=== PATIENT | female | born 1970 | race Two or more races ===

== ENCOUNTER 2020-09-16 10:48 | Outpatient (RCR) | payer BC, SELFPAY ==
[2020-09-16 10:51] VITALS: BP 138/69; PULSE 72
== END 2021-08-01 13:23 | disposition home or self-care (01) ==
LOC: HO.PT 10:48
PROVIDERS: PCP Internal Medicine; Visit Provider Internal Medicine
DX: R42 Dizziness and giddiness (principal)
CPT/HCPCS: 97110; 97161

== ENCOUNTER 2020-09-26 16:22 | Outpatient (REF) | payer BC, SELFPAY ==
--- NOTE | 2020-09-26 | MM_ITS ---
EXAMINATION: MM SCREENING DIGITAL BREAST TOMOSYNTHESIS, BILATERAL CLINICAL INFORMATION: Screening. Asymptomatic. The lifetime risk of breast cancer based on the Tyrer-Cuzick Model is 10%. COMPARISON: Mammography: 09/21/2019, 09/19/2018 TECHNIQUE: Digital breast tomosynthesis is performed in both the craniocaudal and mediolateral oblique views along with computer-aided detection (CAD). Synthesized 2D images are generated from the tomosynthesis. FINDINGS: There are scattered areas of fibroglandular density (ACR BI-RADS breast composition Category b). There are no significant masses, abnormal calcifications, or other abnormalities. Parenchymal pattern is similar to prior studies. No significant changes. MM/MM tomosynthesis screening BI IMPRESSION: No mammographic evidence of malignancy. ASSESSMENT: BI-RADS 1: Negative RECOMMENDATION: Routine annual mammography screening. This patient's information was entered into a reminder system with a target due date for their next mammogram.
== END 2020-09-26 16:23 | disposition home or self-care (01) ==
LOC: HO.MAMMO 16:22
PROVIDERS: Visit Provider Internal Medicine
DX: Z12.31 Encounter for screening mammogram for malignant neoplasm of breast (principal)
CPT/HCPCS: 77063; 77067

== ENCOUNTER 2021-08-17 07:52 | Outpatient (REF) | payer BC, SELFPAY ==
--- NOTE | 2021-08-17 07:57 | EMG_ITS ---
Right median and ulnar motor and sensory studies were performed. Right radial sensory study was performed and paraspinal muscles were tested. IMPRESSION: 1. Moderately severe right median neuropathy across carpal tunnel. 2. Fdry-tv-[id number] right ulnar neuropathy across cubital tunnel. MD ЕЛЕНА Cullen/SHANIKA / [id number]
== END 2021-08-17 07:53 | disposition home or self-care (01) ==
LOC: HO.NEURO 07:52
PROVIDERS: PCP Internal Medicine; Visit Provider Internal Medicine
DX: M79.642 Pain in left hand (principal); M79.641 Pain in right hand
CPT/HCPCS: 95885; 95909

== ENCOUNTER → 2021-09-06 12:46 | Outpatient (BNVA) | payer BC, SELFPAY | PROVIDERS: PCP Internal Medicine; Visit Provider Orthopaedic Surgery | DX: G56.01 Carpal tunnel syndrome, right upper limb (principal); M25.641 Stiffness of right hand, not elsewhere classified | CPT/HCPCS: 20526; J1100 ==

== ENCOUNTER 2021-10-19 16:11 | Outpatient (REF) | payer BC, SELFPAY ==
--- NOTE | ~2021-10-19 | MM_ITS ---
EXAMINATION: MM SCREENING DIGITAL BREAST TOMOSYNTHESIS, BILATERAL CLINICAL INFORMATION: Screening. Asymptomatic. The lifetime risk of breast cancer based on the Tyrer-Cuzick Model is 10%. COMPARISON: Mammography: 09/26/2020, 09/21/2019, 09/19/2018 TECHNIQUE: Digital breast tomosynthesis is performed in both the craniocaudal and mediolateral oblique views along with computer-aided detection (CAD). Synthesized 2D images are generated from the tomosynthesis. FINDINGS: There are scattered areas of fibroglandular density (ACR BI-RADS breast composition Category b). There are no significant masses, abnormal calcifications, or other abnormalities. MM/MM tomosynthesis screening BI IMPRESSION: No mammographic evidence of malignancy. ASSESSMENT: BI-RADS 1: Negative RECOMMENDATION: Routine annual mammography screening. This patient's information was entered into a reminder system with a target due date for their next mammogram.
== END 2021-10-19 16:12 | disposition home or self-care (01) ==
LOC: HO.MAMMO 16:11
PROVIDERS: Visit Provider Internal Medicine
DX: Z12.31 Encounter for screening mammogram for malignant neoplasm of breast (principal)
CPT/HCPCS: 77063; 77067

== ENCOUNTER → 2022-03-15 14:49 | Outpatient (BNVA) | payer BC, SELFPAY | PROVIDERS: Visit Provider Advanced Practice Midwife | DX: R10.9 Unspecified abdominal pain (principal); I10 Essential (primary) hypertension; F41.8 Other specified anxiety disorders; Z30.431 Encounter for routine checking of intrauterine contraceptive device; Z78.0 Asymptomatic menopausal state; Z79.899 Other long term (current) drug therapy | CPT/HCPCS: 81003 ==

== ENCOUNTER 2022-07-30 08:02 | Day surgery (SDC) | payer BC, SELFPAY ==
[2022-07-24 13:20] VITALS: BMI 27.8
[2022-07-30 08:36] VITALS: BP 116/81; PULSE 64; RESP 15; TEMP 36.5; O2SAT 98
--- NOTE | 2022-07-30 09:00 | P.CONAN_ITS ---
HPI - Anesthesia Eval Consult details Narrative: 52 yo female patient for colonoscopy PMF Active Problems Active Problems: All Active Problems (Updated 03/15/22 @ 16:21 by Tara Mckenzie CNM) Carpal tunnel syndrome of right wrist (Acute) Stiffness of right hand joint (Acute) IUD check up (Acute) Left-sided abdominal pain of unknown etiology (Acute) Past Medical History Medical History Anxiety Depression High blood pressure Family History Family history of problems with anesthesia: No Surgical History Surgical History (Updated 07/30/22 @ 09:05 by Madelaine Garcia RN) History of section History of tooth extraction Hx of breast biopsy History of Problems with Anesthesia: No (Some dizziness after stereotactic breast biopsy and after dental extraction but these were both local. Very limited information available for breast biopsy 06/05/17 but documented as stable post op. 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 Meds Allergies Allergy/AdvReac Type Severity Reaction Status Date / Time No Known Allergies Allergy Verified 03/15/22 15:08 Active Medications: Current Medications Lactated Ringer's (Lr) 1,000 mls @ 50 mls/hr IVCONT .Q20H GRIS Sodium Biphosphate/Sodium Phosphate (Sodium Phosphate,[place]-Dibasic 133 Ml Enema) 133 ml KS ONCE PRN PRN Reason: Poor Colonoscopy Prep Results Home Medications Medication Instructions Recorded Confirmed Last Taken Type alprazolam 0.25 mg tablet 0.5 mg PO BEDTIME PRN Anxiety 09/06/21 07/24/22 Unknown History quetiapine 25 mg tablet (Seroquel) 100 mg PO DAILY 09/06/21 07/24/22 Unknown History sertraline 25 mg tablet (Zoloft) 50 mg PO DAILY 09/06/21 07/24/22 Unknown History zolpidem 10 mg tablet 10 mg PO BEDTIME PRN Insomnia 09/06/21 07/24/22 Unknown History levonorgestrel 20 mcg/24 hours (7 intrauterine 03/15/22 03/15/22 Unknown History yrs) 52 mg intrauterine device (Mirena) lisinopril 10 mg tablet 10 mg PO QAM 07/24/22 07/24/22 Unknown History Exam Exam Date and Time: July 30, 2022 0900 Height,Weight and Vital Signs: Height 5 ft 2 in Weight 68.946 kg Last Vital Signs Temp 97.7 F 07/30/22 08:36 Pulse 64 07/30/22 08:36 Resp 15 07/30/22 08:36 BP 116/81 07/30/22 08:36 Pulse Ox 98 07/30/22 08:36 O2 Del Method 07/30/22 08:36 Airway Mallampati Class: II TM Dist: >3cm Neck ROM: Full Loose/Missing/Broken Teeth: Yes (Dental extraction ) Heart: RRR Lungs: CTAB Assessment and Plan Assessment Anesthesia Assessment: Anesthesia Plan Discussed and Chart Reviewed Final Anesthetic Review Family History of Problems with Anesthesia: No History of Problems with Anesthesia: No (Some dizziness after stereotactic breast biopsy and after dental extraction but these were both local. Very limited information available for breast biopsy 06/05/17 but documented as stable post op. Of note, patient does have a h/o vertigo ) NPO: Yes ASA Class: II Final Preanesthetic Review: No Changes in Pt Med Stat, Meds/Allgs Chart Reviewed, Consent Obtained/Reviewed and Anes Risks/Benef Reviewed Patient Risk: Low Procedure Risk: Low Assessment/Block/Sedation in SS: Assess/Block/Sedation-SS Anesthetic Plan Anesthetic Plan: MAC: Disposition: Standard PACU
[2022-07-30] MEDS: Lactated Ringers 1,000 ML 50 ML IVCONT (09:28)
[2022-07-30 10:42] VITALS: BP 105/64; PULSE 77; RESP 16; TEMP 37.1; O2SAT 97
--- NOTE | 2022-07-30 10:47 | P.BOP_ITS ---
Brief Operative Note Date of Service: 07/30/22 Pre-op diagnosis: Screening Post-op diagnosis: other (Colon polyps) Procedure: Colonoscopy to the cecum and TI with hot snare polypectomy in the transverse colon and at 60cm, cold snare polypectomy in the proximal ascending colon, and biopsy/removal of polyp at 90cm Surgeon: David Austin Anesthesia: MAC Was an Congressional Assistant used for this Procedure?: No Estimated blood loss (mL): 2.0 Pathology: other (A. Ascending colon polyp B. Transverse colon polyp C. Polyp at 90cm D. Polyp at 60cm) Condition: stable Disposition: PACU
[2022-07-30 10:57] VITALS: BP 120/68; PULSE 69; RESP 18; TEMP 37.1; O2SAT 97
--- NOTE | 2022-07-30 22:45 | OP_ITS ---
SURGEON: David Austin MD INDICATIONS: The patient presents for evaluation of colorectal cancer screening. Full consent was obtained from her for this, including risks of bleeding and perforation. PREOPERATIVE DIAGNOSIS: Colorectal cancer screening. POSTOPERATIVE DIAGNOSIS: Colorectal cancer screening, colon polyps, diverticulosis, and internal hemorrhoids. PROCEDURE PERFORMED: Colonoscopy to the cecum and terminal ileum with biopsy and removal of polyps, cold snare polypectomy, and hot snare polypectomy x 2 in the transverse colon and at 60 cm. ESTIMATED BLOOD LOSS: COMPLICATIONS: ANESTHESIA: ASSISTANTS: SPECIMENS: PREOPERATIVE MEDICATION USED: Monitored anesthesia care. DESCRIPTION OF PROCEDURE: The patient was placed in the left lateral decubitus position. The digital rectal exam revealed no abnormalities. The Olympus video pediatric colonoscope was entered into the rectum and advanced easily to the cecum. Once in the cecum, I did identify normal-appearing cecal pouch with appendiceal orifice and a normal-appearing ileocecal valve. The terminal ileum was cannulated and appeared normal. The scope was withdrawn back in the colon. The entire cecum and ileocecal valve appeared normal. The scope was then slowly withdrawn assessing all mucosal surfaces carefully. Preparation was excellent. In the proximal ascending colon was an approximately 5 mm polyp, which was removed by cold snare polypectomy and recovered by suction. The polypectomy site appeared clean, without any sign of residual polyp, nor any significant bleeding. In the transverse colon was an approximately 1.2 cm polyp on a stalk, which was removed by hot snare polypectomy and then recovered with a retrieval net and brought out of the patient. The colonoscope was then advanced back to the polypectomy site, which appeared clean, without any sign of residual polyp, nor bleeding. At 90 cm was an approximately 3 mm polyp, which was removed by cold biopsy forceps completely. At 60 cm was an approximately 8 mm polyp on a stalk, which was removed by hot snare polypectomy and then recovered by suction. The polypectomy site appeared clean, without any sign of residual polyp, nor bleeding. I did not visualize any other polyps, colitis, nor angiodysplasia. There was a mild amount of sigmoid diverticulosis. In the rectum, scope was retroflexed visualizing internal hemorrhoids, but no other pathology. The rectal mucosa appeared normal. The scope was straightened and withdrawn from the patient. She tolerated the procedure well and was returned to the recovery area in stable condition. IMPRESSION: 1. Colon polyps. 2. Diverticulosis. 3. Internal hemorrhoids. PLAN: The results of the pathology will be checked. Given the number of polyps, I would recommend a repeat colonoscopy in 3 years for further surveillance. She was advised not to use any aspirin and NSAIDs for 1 week. MD CATIE Godinez/SHANIKA / [id number] MTDD
== END 2022-07-30 11:43 | disposition home or self-care (01) ==
PROVIDERS: PCP Internal Medicine; Visit Provider Internal Medicine
PROC: 0DJD8ZZ Inspection of Lower Intestinal Tract, Via Natural or Artificial Opening Endoscopic (ICD-10-PCS; CPT 45378; principal; 2022-07-30 09:30)
DX: Z12.11 Encounter for screening for malignant neoplasm of colon (principal); D12.2 Benign neoplasm of ascending colon; D12.3 Benign neoplasm of transverse colon; D12.4 Benign neoplasm of descending colon; K57.30 Diverticulosis of large intestine without perforation or abscess without bleeding; K64.8 Other hemorrhoids; I10 Essential (primary) hypertension; F41.8 Other specified anxiety disorders; Z79.899 Other long term (current) drug therapy
CPT/HCPCS: 45385; 45380; 88305

== ENCOUNTER 2022-10-30 15:45 | Outpatient (REF) | payer BC, SELFPAY ==
--- NOTE | ~2022-10-30 | MM_ITS ---
EXAMINATION: MM SCREENING DIGITAL BREAST TOMOSYNTHESIS, BILATERAL CLINICAL INFORMATION: Screening. Asymptomatic. The lifetime risk of breast cancer based on the Tyrer-Cuzick Model is 10%. COMPARISON: Mammography: 10/19/2021, 1026, 09/21/2019 TECHNIQUE: Digital breast tomosynthesis is performed in both the craniocaudal and mediolateral oblique views along with computer-aided detection (CAD). Synthesized 2D images are generated from the tomosynthesis. FINDINGS: There are scattered areas of fibroglandular density (ACR BI-RADS breast composition Category b). There are no significant masses, abnormal calcifications, or other abnormalities. Parenchymal pattern is similar to prior studies. There is no developing density or architectural abnormality. There is a biopsy clip marker anterior 2:30 left breast. The axilla and skin contours are unremarkable. No significant changes. MM/MM tomosynthesis screening BI IMPRESSION: No mammographic evidence of malignancy. ASSESSMENT: BI-RADS 1: Negative RECOMMENDATION: Routine annual mammography screening. This patient's information was entered into a reminder system with a target due date for their next mammogram.
== END 2022-10-30 15:46 | disposition home or self-care (01) ==
LOC: HO.MAMMO 15:45
PROVIDERS: PCP Internal Medicine; Visit Provider Internal Medicine
DX: Z12.31 Encounter for screening mammogram for malignant neoplasm of breast (principal)
CPT/HCPCS: 77063; 77067

== ENCOUNTER 2024-01-15 14:17 | Outpatient (REF) | payer BC, SELFPAY ==
[2024-01-16 03:56] LABS: CT PCR NOT DETECTED (Not Detect.); NG PCR NOT DETECTED (Not Detect.)
[2024-01-16 13:37] LABS: BV Int Neg Control Negative (Negative); BV Int Pos Control Positive (Positive)
[2024-01-20 23:32] LABS: HPV mRNA E6/E7 rflx Not Detected (Not Detected)
== END 2024-01-15 14:18 | disposition home or self-care (01) ==
LOC: HO.LNP 14:17
PROVIDERS: PCP Internal Medicine; Visit Provider Advanced Practice Midwife
DX: Z12.4 Encounter for screening for malignant neoplasm of cervix (principal); Z11.51 Encounter for screening for human papillomavirus (HPV); R10.2 Pelvic and perineal pain; R14.0 Abdominal distension (gaseous)
CPT/HCPCS: 0353U; 87480; 87510; 87624; 87660; 88142

== ENCOUNTER 2024-01-15 14:17 | Outpatient (AMB) | payer BC, SELFPAY ==
[2024-01-15 14:25] VITALS: BP 116/68; BMI 27.1
--- NOTE | 2024-01-15 14:25 | MHC.OFFVIS ---
Intake Vital Signs 01/15/24 14:25 Height 5 ft 2 in Weight 148 lb BMI 27.1 BP 116/68 Intake Visit Reasons: IUD problem Intake Note: Has been having irritation like if something was coming out. Went to the ED recently was given medication for UTI but she is still feeling the same Sx. Stonework Tracer Required: Yes Stonework Tracer Language: Romanian Information Interpreted: non-clinical & clinical Steamboat Captain: Steamboat Captain Present (Shannanyn) Accompanied by: Daughter Allergies No Known Allergies Allergy (Verified 01/15/24 14:28) Medication List - Last Reconciled 01/15/24 by Tara Mckenzie CNM alprazolam 0.5 mg PO BEDTIME PRN levonorgestrel (Mirena) intrauterine lisinopril 10 mg PO QAM quetiapine (Seroquel) 100 mg PO DAILY sertraline (Zoloft) 50 mg PO DAILY zolpidem 10 mg PO BEDTIME PRN Is last menstrual period known: No Post menopausal: Yes Patient : No HPI IUD problem HPI Details Patient is here with a complaint of feeling like her IUD or something wants to just come out she has feeling a lot of abdominal pressure but she continually points to her entire abdomen and feels like something just wants to come out she was very recently treated for urinary tract infection with some alleviation of some of her symptoms of urinary frequency and urgency. However she still does some times have frequency of urination. She has not clear whether not she empties urine completely she thinks in the moment that she does but very soon after she feels like she has to urinate again. She has had problems with feeling gassy and constipated and diarrhea but recently it has been okay and she has been taking Metamucil regularly to help her go she had a normal bowel movement this morning. She says the IUD was placed to help with abnormal bleeding. She said her mother was 75 years old and had a problem with abnormal bleeding but her daughter volunteered that her grandmother had had cervical cancer and that was the cause for her bleeding. 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 Cervix appears nulliparous with Mirena IUD strings visible. Difficult to palpate uterus secondary to abdominal bloating. Patient complaining of tenderness but it appears to be total abdominal tenderness. Good tone. External Female Exam: normal external appearance Speculum Exam - Vagina: normal appearance of the vagina and normal vaginal discharge Speculum Exam - Cervix: normal appearance of the cervix Bimanual exam- vagina & uterus: normal bimanual exam, consistency normal, uterine mobility normal, uterine shape normal and non-tender Bimanual Exam- Adnexa, other: normal adnexae, no masses and No adnexal tenderness Assessment & Plan Assessment & Plan (1) IUD check up: Comment: Patient has Mirena IU S inserted 2019, per patient for abnormal bleeding.... Code(s): Z30.431 - Encounter for routine checking of intrauterine contraceptive device (2) Abdominal pressure: Code(s): R10.9 - Unspecified abdominal pain (3) Bloating: Code(s): R14.0 - Abdominal distension (gaseous) (4) Abnormal uterine bleeding (AUB): Code(s): N93.9 - Abnormal uterine and vaginal bleeding, unspecified (5) History of uterine fibroid: Code(s): Z86.018 - Personal history of other benign neoplasm (6) Perimenopausal symptoms: Code(s): N95.1 - Menopausal and female climacteric states (7) Constipation: Comment: Currently managing with Metamucil. 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 Ultrasound that was ordered in 2021 did not occur so follow-up visit from that did not occur as well. Discussed that it is very difficult to tell whether the problem is uterine or intestinal or with her bladder. Discussed her symptoms in great detail I asked her to keep track it for a couple of days of how often she urinates and whether not it is a good flow or does she feel very quickly that she needs to void again. This is an attempt to have her keep track to see if she is completely emptying her bladder or not in terms of checking for presence of uterine fibroids whether not they have increased I am requesting a pelvic ultrasound to be done soon if possible this week if possible as her symptoms have been there for about the last 15 days. She has already been treated for urinary tract infection and had some alleviation of symptoms but not completely. In addition she somewhat recently in the last couple of years had a colonoscopy with a finding of 4 polyps. So she may also need follow-up with Gastroenterology. In addition she has not had fasting blood work in a while so I recommend she go fasting to her primary care appointment on the of this month with Dr. Jaramillo so that if he requests fasting blood work it can be done on that very same day. Meanwhile I am ordering of an FSH level so that if it turns out she is menopausal the Mirena IUD can be removed. She inquired whether not she could just have everything removed but I discussed that nobody would consider removing ?everything without 1st investigating what the problem is the problem may be intestinal it may be with her bladder it may be uterine. I will see her after the ultrasound and we will discuss the results and she meanwhile will follow-up with her primary care provider as well Orders: Orders US pelvic and transvaginal Today K59.00 - Constipation, unspecified, K63.5 - Polyp of colon, N93.9 - Abnormal uterine and vaginal bleeding, unspecified, N95.1 - Menopausal and female climacteric states, R10.9 - Unspecified abdominal pain, R14.0 - Abdominal distension (gaseous), Z30.431 - Encounter for routine checking of intrauterine contraceptive device, Z86.018 - Personal history of other benign neoplasm CT NG by PCR Today R10.2 - Pelvic and perineal pain Pap Smear Today Z12.4 - Encounter for screening for malignant neoplasm of cervix Bacterial Vaginosis Panel Today R10.2 - Pelvic and perineal pain Coding Level of Care Code Est Pt Level 3 (06524) Diagnoses IUD check up Z30.431 Abdominal pressure R10.9 Bloating R14.0 Abnormal uterine bleeding (AUB) N93.9 History of uterine fibroid Z86.018 Perimenopausal symptoms N95.1 Constipation K59.00 Colon polyps K63.5
== END 2024-01-15 15:56 | disposition home or self-care (01) ==
LOC: HO.HWSM 14:17
PROVIDERS: PCP Internal Medicine; Visit Provider Advanced Practice Midwife
DX: Z30.431 Encounter for routine checking of intrauterine contraceptive device (principal); R10.9 Unspecified abdominal pain; R14.0 Abdominal distension (gaseous); N93.9 Abnormal uterine and vaginal bleeding, unspecified; Z86.018 Personal history of other benign neoplasm; N95.1 Menopausal and female climacteric states; K59.00 Constipation, unspecified; K63.5 Polyp of colon
CPT/HCPCS: 99213

== ENCOUNTER 2024-01-17 10:43 | Outpatient (REF) | payer BC, SELFPAY ==
--- NOTE | ~2024-01-17 | US_ITS ---
EXAMINATION: US PELVIC COMPLETE WITH TV CLINICAL INFORMATION: Evaluate intrauterine contraceptive device COMPARISON: Ultrasound pelvis on 08/05/2018 TECHNIQUE: Real-time transabdominal and transvaginal ultrasound scanning. FINDINGS: Transabdominal and transvaginal ultrasound examination of the pelvis were performed. Uterus: Anteverted; measuring 7.9 cm in length, 3.6 cm in AP diameter and 4.3 cm in width. Calcifications are seen in lower uterine segment and uterine cervix. Multiple myometrial mass lesions are found. Posterior upper uterine body lesion measures 2.4 x 2.3 x 2.6 cm in size (previously 2.6 x 2.9 x 3.1 cm). Uterine fundal lesion measures 1.4 x 1.2 x 1.4 cm in size (previously 1.5 x 0.7 x 1.1 cm). Anterior upper uterine body lesion measures 1.5 x 1.5 x 1.4 cm in size (previously 0.7 x 0.5 x 0.7 cm). Anterior mid uterine body lesion measures 1.0 x 0.7 x 0.9 cm in size (previously 0.7 x 0.5 x 0.6 cm). Linear echogenicities corresponding to T shaped intrauterine contraceptive device are seen in optimal position. Echotexture: normal sonographic appearance Endometrial Thickness: 0.82 cm. Right ovary: 2.7 x 1.3 x 2.0 cm (SAG x AP x TRV), calculated volume of 3.8 mL, with normal echotexture. Previously 2.9 x 1.7 x 1.7 cm (SAG x AP x TRV), calculated volume of 4.9 mL Left ovary: 1.7 x 1.0 x 1.2 cm (SAG x AP x TRV), calculated volume of 1.1mL, with normal echotexture. Previously 1.4 x 2.0 x 1.2 cm (SAG x AP x TRV), calculated volume of 1.7 mL No free fluid is present. Limited view of the urinary bladder shows no abnormality. US/US pelvic and transvaginal IMPRESSION: 1. Persistent uterine leiomyomatosis. 2. Interval placement of Intrauterine contraceptive device in optimal position. 3. Unchanged normal sonographic appearance of bilateral ovaries.
== END 2024-01-17 10:44 | disposition home or self-care (01) ==
LOC: HO.US 10:43
PROVIDERS: PCP Internal Medicine; Visit Provider Advanced Practice Midwife
DX: Z30.431 Encounter for routine checking of intrauterine contraceptive device (principal); R14.0 Abdominal distension (gaseous); R10.9 Unspecified abdominal pain; N93.9 Abnormal uterine and vaginal bleeding, unspecified; N95.1 Menopausal and female climacteric states; K59.00 Constipation, unspecified; K63.5 Polyp of colon; Z86.018 Personal history of other benign neoplasm
CPT/HCPCS: 36415; 76830; 76856; 83001

== ENCOUNTER 2024-01-31 08:54 | Outpatient (REF) | payer BC, SELFPAY ==
[2024-01-31 11:27] LABS: MANUAL DIFF FLAG NO
[2024-01-31 11:43] LABS: Eosinophils Absolute Auto 0.1 X10*3/uL (0.0-0.4); Eosinophils Percent Auto 3.4 % (0-4); Hematocrit 41.2 % (37.0-47.0); Hemoglobin 14.2 g/dl (12.0-16.0); Imm Gran Abs Auto 0.01 X10*3/uL (0.00-0.03); Imm Gran Pct Auto 0.3 % (0.0-0.4); Lymphocytes Absolute Auto 0.9 X10*3/uL (1.2-4.9); Lymphocytes Percent Auto 24.2 % (20-40); Mean Corpuscular HGB Conc 34.5 g/dl (31.0-35.0); Mean Corpuscular Hemoglobin 30.5 pg (27.0-33.0); Mean Corpuscular Volume 88.6 fL (80.0-98.0); Mean Platelet Volume 10.8 fL (9.4-12.3); Monocytes Absolute Auto 0.4 X10*3/uL (0.1-1.2); Monocytes Percent Auto 9.1 % (2-11); Neutrophils Absolute Auto 2.4 x10*3/uL (2.0-8.3); Platelet Count 190 X10*3/uL (160-400); Red Blood Count 4.65 X10*6/uL (4.20-5.50); Red Cell Distribution Width 12.3 % (11.0-16.0); White Blood Count 3.9 X10*3/uL (4.8-10.8)
[2024-01-31 12:13] LABS: Alanine Aminotransferase 16 U/L (0-31); Albumin Level 4.3 g/dL (3.5-5.0); Alkaline Phosphatase 75 U/L (39-117); Anion Gap 10 (12-20); Aspartate Amino Transferase 22 U/L (5-31); Bilirubin Direct 0.2 mg/dL (0.0-0.5); Bilirubin Total 0.7 mg/dL (0.0-1.0); Blood Urea Nitrogen 17 mg/dL (9-16); Calcium 9.4 mg/dL (8.4-10.2); Carbon Dioxide 26 mmol/L (22-29); Chloride 111 mmol/L (96-108); Cholesterol 217 mg/dL (<200); Estimated Glomerular Filt Rate > 60; Glucose Random 87 mg/dL (60-115); HDL Cholesterol 48 mg/dL (>40); LDL Cholesterol Calculated 155 mg/dL (<100); Potassium 4.2 mmol/L (3.3-5.1); Sodium 143 mmol/L (135-145); Total Protein 7.4 g/dL (6.5-8.0); Triglycerides 72 mg/dL (<150)
[2024-01-31 12:14] LABS: TSH reflex Free T4 1.21 uIU/mL (0.32-4.0)
[2024-01-31 13:24] LABS: Reflex LDLD? No
[2024-01-31 16:56] LABS: Appearance Urine Clear; Color Urine Yellow; Glucose Urine UA Negative (Negative); Leukocyte Esterase Urine Trace (Negative); Nitrite Urine Negative (Negative); PH 5.5 (5.0-9.0); Specific Gravity - Urine 1.025 (1.005-1.025); UMIC TRIGGER UACC YES; Urine Blood Negative (Negative); Urine Ketones Negative (Negative); Urine Protein Negative (Neg-Trace)
[2024-01-31 17:10] LABS: Bacteria Urine Trace (None Seen); Hyaline Casts Urine 0-2 /LPF (0-2); RBC Urine 0-2 /HPF (0-2); Squamous Epithelial Cell Urine 0-2 /HPF (0-2); UACC Culture Trigger YES
== END 2024-01-31 08:55 | disposition home or self-care (01) ==
LOC: HO.HHCL 08:54
PROVIDERS: Visit Provider Internal Medicine
DX: I10 Essential (primary) hypertension (principal); N95.1 Menopausal and female climacteric states; N93.9 Abnormal uterine and vaginal bleeding, unspecified; R10.9 Unspecified abdominal pain
CPT/HCPCS: 36415; 80048; 80061; 80076; 81001; 81003; 84443; 85025; 87086; 87088; 87186

== ENCOUNTER 2024-01-31 13:18 | Outpatient (AMB) | payer BC, SELFPAY ==
--- NOTE | 2024-01-31 13:26 | MHC.OFFVIS ---
Intake Intake Visit Reasons: US/Labs follow up Information Interpreted: clinical only Electronics Recycler: Electronics Recycler Present Allergies No Known Allergies Allergy (Verified 01/31/24 13:26) Medication List - Last Reconciled 01/31/24 by Tara Mckenzie CNM alprazolam 0.5 mg PO BEDTIME PRN levonorgestrel (Mirena) intrauterine lisinopril 10 mg PO QAM quetiapine (Seroquel) 100 mg PO DAILY sertraline (Zoloft) 50 mg PO DAILY zolpidem 10 mg PO BEDTIME PRN Is last menstrual period known: No (IUD) Do you need a note to return to daycare/school/sports/work: No HPI US/Labs follow up HPI Details Patient is here for follow-up of her perception of uterine cramping like something needs to come out or her uterus is trying to express something problem visit done within the last month and patient was sent for some lab work as well as for an ultrasound to assess what was going on with her fibroids and also whether not the IUD was coming out. Patient feels better than she felt when she was seen at the time however she still occasionally just feels like her uterus is trying to spit something out according to the ultrasound the IUD is in the optimal position she does have several at least 5 fibroids and they are marginally bigger than they were during an ultrasound assessment in 2018 or 19. At that time she also had endometrial biopsy and she also had after some consultation and discussion a Mirena IU S placed to deal with hemorrhaging and menorrhagia with huge clots her periods this appeared with the Mirena however now she has this renewed discomfort. She is wondering about just taking her uterus out. Discussed that now that the FSH reveals that she in fact is in the menopausal range, 1 option is to simply take the Mirena out and see if that improves how she feels. She would like to still speak with a regional program manager to talk about the possibility of hysterectomy if she is still feeling this uncomfortable. Plan made to have a visit next week for removal of the Mirena (considered removal today however there is no equipment available at this office today to grasp the Mirena to remove it). She agreed to give it time after that perhaps about a month to see how she feels and then she would like to have a visit set up in advance to speak with Dr. Husain so that she can still address the issue of possible hysterectomy. Perhaps she will feel better and not be feeling the same at that time. Additionally I discussed that there are new or options available but that would be something for Dr. Husain to discuss with her in terms of embolization procedures designed to shrink the fibroids. So she could discuss all of this with him when she sees him. I reviewed other labs that have been done as well and in addition she spoke with Dr. Jaramillo this week and he ordered a CT scan for her to to investigate whether not any of her symptoms are intestinal and that is definitely were the of investigation. Patient was assisted today in the visit with her daughter so that while she understood me and I understood her for the most part she did look to her daughter for clarification. Her daughter intends to be with her if she can for the remote sensing surveyor consultation. Records were reviewed from 2018 and 2018 when she had the Mirena placed by Dr. 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 Attending Dr: Tara Mckenzie CNM Ordering Physician: Tara Mckenzie CNM Date of Service: 01/17/24 Procedure(s): US pelvic and transvaginal Accession Number(s): [id number] cc: Mark Thompson MD; Tara Mckenzie CNM~ EXAMINATION: US PELVIC COMPLETE WITH TV CLINICAL INFORMATION: Evaluate intrauterine contraceptive device COMPARISON: Ultrasound pelvis on 08/05/2018 TECHNIQUE: Real-time transabdominal and transvaginal ultrasound scanning. FINDINGS: Transabdominal and transvaginal ultrasound examination of the pelvis were performed. Uterus: Anteverted; measuring 7.9 cm in length, 3.6 cm in AP diameter and 4.3 cm in width. Calcifications are seen in lower uterine segment and uterine cervix. Multiple myometrial mass lesions are found. Posterior upper uterine body lesion measures 2.4 x 2.3 x 2.6 cm in size (previously 2.6 x 2.9 x 3.1 cm). Uterine fundal lesion measures 1.4 x 1.2 x 1.4 cm in size (previously 1.5 x 0.7 x 1.1 cm). Anterior upper uterine body lesion measures 1.5 x 1.5 x 1.4 cm in size (previously 0.7 x 0.5 x 0.7 cm). Anterior mid uterine body lesion measures 1.0 x 0.7 x 0.9 cm in size (previously 0.7 x 0.5 x 0.6 cm). Linear echogenicities corresponding to T shaped intrauterine contraceptive device are seen in optimal position. Echotexture: normal sonographic appearance Endometrial Thickness: 0.82 cm. Right ovary: 2.7 x 1.3 x 2.0 cm (SAG x AP x TRV), calculated volume of 3.8 mL, with normal echotexture. Previously 2.9 x 1.7 x 1.7 cm (SAG x AP x TRV), calculated volume of 4.9 mL Left ovary: 1.7 x 1.0 x 1.2 cm (SAG x AP x TRV), calculated volume of 1.1mL, with normal echotexture. Previously 1.4 x 2.0 x 1.2 cm (SAG x AP x TRV), calculated volume of 1.7 mL No free fluid is present. Limited view of the urinary bladder shows no abnormality. US/US pelvic and transvaginal IMPRESSION: 1. Persistent uterine leiomyomatosis. 2. Interval placement of Intrauterine contraceptive device in optimal position. 3. Unchanged normal sonographic appearance of bilateral ovaries. Dictated By: Nita Murray Signed By: <Electronically signed by Nita Murray in OV> 01/17/24 1433 DD/ 1153 TD/TT: Claims Auditor: FSH level drawn 01/19/2024= 125. FSH drawn in 2019 11.5 Assessment & Plan Assessment & Plan (1) Perimenopausal symptoms: Code(s): N95.1 - Menopausal and female climacteric states (2) Abnormal uterine bleeding (AUB): Comment: History of; resolved with Mirena IU S planning removal 02/05/2024 Code(s): N93.9 - Abnormal uterine and vaginal bleeding, unspecified (3) History of uterine fibroid: Comment: Multiple have slightly increased in size. Will have consultation with Dr. Husain March 25 Code(s): Z86.018 - Personal history of other benign neoplasm (4) Abdominal pressure: Code(s): R10.9 - Unspecified abdominal pain (5) IUD check up: Comment: Patient has Mirena IU S inserted 2018, per patient for abnormal bleeding....; plan removal 02/05/2024 Code(s): Z30.431 - Encounter for routine checking of intrauterine contraceptive device (6) Menopausal symptom: Code(s): N95.1 - Menopausal and female climacteric states Plan Patient is here for follow-up of her perception of uterine cramping like something needs to come out or her uterus is trying to express something problem visit done within the last month and patient was sent for some lab work as well as for an ultrasound to assess what was going on with her fibroids and also whether not the IUD was coming out. Patient feels better than she felt when she was seen at the time however she still occasionally just feels like her uterus is trying to spit something out according to the ultrasound the IUD is in the optimal position she does have several at least 5 fibroids and they are marginally bigger than they were during an ultrasound assessment in 2018 or 19. At that time she also had endometrial biopsy and she also had after some consultation and discussion a Mirena IU S placed to deal with hemorrhaging and menorrhagia with huge clots her periods this appeared with the Mirena however now she has this renewed discomfort. She is wondering about just taking her uterus out. Discussed that now that the FSH reveals that she in fact is in the menopausal range, 1 option is to simply take the Mirena out and see if that improves how she feels. She would like to still speak with a regional program manager to talk about the possibility of hysterectomy if she is still feeling this uncomfortable. Plan made to have a visit next week for removal of the Mirena (considered removal today however there is no equipment available at this office today to grasp the Mirena to remove it). She agreed to give it time after that perhaps about a month to see how she feels and then she would like to have a visit set up in advance to speak with Dr. Husain so that she can still address the issue of possible hysterectomy. Perhaps she will feel better and not be feeling the same at that time. Additionally I discussed that there are new or options available but that would be something for Dr. Husain to discuss with her in terms of embolization procedures designed to shrink the fibroids. So she could discuss all of this with him when she sees him. I reviewed other labs that have been done as well and in addition she spoke with Dr. Jaramillo this week and he ordered a CT scan for her to to investigate whether not any of her symptoms are intestinal and that is definitely were the of investigation. Patient was assisted today in the visit with her daughter so that while she understood me and I understood her for the most part she did look to her daughter for clarification. Her daughter intends to be with her if she can for the remote sensing surveyor consultation. Records were reviewed from 2018 and 2019 when she had the Mirena placed by Dr. Tian and also her negative endometrial biopsy results from that year as well Pap smear is still pending, Also discussed menopause as she is clearly in it now judging by the elevated FSH. Does experience the vaginal discomfort with intercourse---Discussed normal changes that happen premenapausally, perimenapausally, and postmenopausally, and ways to handle them. Discussed the normal variation, and the range of experiences that women experience. Discussed nutrition, health, need for exercise, both weight-bearing and aerobic. Also discussed the normal changes that happen with vaginal mucosal thinning and sensitivity, and simple more natural ways of handling these challenges. Coding Level of Care Code Est Pt Level 3 (02599) Diagnoses Perimenopausal symptoms N95.1 Abnormal uterine bleeding (AUB) N93.9 History of uterine fibroid Z86.018 Abdominal pressure R10.9 IUD check up Z30.431 Menopausal symptom N95.1
== END 2024-01-31 14:56 | disposition home or self-care (01) ==
LOC: HO.HWSM 13:19
PROVIDERS: PCP Internal Medicine; Visit Provider Advanced Practice Midwife
DX: N95.1 Menopausal and female climacteric states (principal); N93.9 Abnormal uterine and vaginal bleeding, unspecified; Z86.018 Personal history of other benign neoplasm; R10.9 Unspecified abdominal pain; Z30.431 Encounter for routine checking of intrauterine contraceptive device
CPT/HCPCS: 99213

== ENCOUNTER 2024-02-05 10:15 | Outpatient (AMB) | payer BC, SELFPAY ==
--- NOTE | 2024-02-05 10:17 | MHC.OFFVIS ---
Intake Vital Signs 02/05/24 10:22 Height 5 ft 2 in Weight 148 lb BMI 27.1 BP 138/80 Blood Pressure Location Rt brachial Position Sitting Intake Visit Reasons: Per Tara,IUD Removal (Mirena) Intake Note: Pt presents to the office today for a IUD removal (Mirena). Pt states she is still having some pelvic pain. Allergies No Known Allergies Allergy (Verified 02/05/24 10:22) Medication List - Last Reconciled 02/05/24 by Tara Mckenzie CNM alprazolam 0.5 mg PO BEDTIME PRN levofloxacin 250 mg PO DAILY levonorgestrel (Mirena) intrauterine lisinopril 10 mg PO QAM quetiapine (Seroquel) 100 mg PO DAILY sertraline (Zoloft) 50 mg PO DAILY zolpidem 10 mg PO BEDTIME PRN HPI Per Tara,IUD Removal (Mirena) HPI Details Please see detailed previous visits including lengthy discussion and plan to remove this IUD her FSH showed that she is now in the postmenopausal range she does have fibroids and if removing the IUD does not result in improvement in her symptoms then she will see Dr. Husain to discuss if something needs to be done with the fibroids we have an appointment already set up for her on March 07 so that her daughter can accompany her to that visit for full discussion about future plans and referrals. In the meantime she is been also speaking with her primary care provider. She currently today is on an antibiotic for possibly a UTI. 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 Reproductive History Menstrual Age of Menarche: 10 Date of last pap smear: 01/16/24 Physical Exam Vital Signs: Last Vital Signs BP 138/80 03/06/24 10:22 BMI result Body Mass Index 27.1 Office Procedures IUD Insert/Removal Details Details: See HPI for the discussion clarified with patient again the reason for the removal she is now postmenopausal she is concerned about her pelvic symptoms and it may be the her fibroids but we are going to remove the IUD to see if that makes a difference in her symptoms in addition her primary care provider has just started treatment yesterday with antibiotic for UTI so that may improve her symptoms as well she already has a scheduled follow-up with Dr. Husain should her symptoms not improve additionally her primary care provider has ordered a CT scan to evaluate bowel issues. Speculum was placed nulliparous cervix visualized postmenopausal Mirena strings about 2 cm through os strings grasped with tenaculum and while patient gave a cough with 1 tug it was easily removed. Patient experienced it with no problems. [id number] Removal Procedure code (CPT) selection complete Assessment & Plan Assessment & Plan (1) Menopausal symptom: Code(s): N95.1 - Menopausal and female climacteric states (2) Encounter for IUD removal: Code(s): Z30.432 - Encounter for removal of intrauterine contraceptive device (3) Perimenopausal symptoms: Code(s): N95.1 - Menopausal and female climacteric states (4) Abnormal uterine bleeding (AUB): Comment: History of; resolved with Mirena IU S planning removal 02/05/2024 Code(s): N93.9 - Abnormal uterine and vaginal bleeding, unspecified (5) History of uterine fibroid: Comment: Multiple have slightly increased in size. Will have consultation with Dr. Husain March 25 Code(s): Z86.018 - Personal history of other benign neoplasm Plan This is the plan delineated at last week's visit. ''Patient is here for follow-up of her perception of uterine cramping like something needs to come out or her uterus is trying to express something problem visit done within the last month and patient was sent for some lab work as well as for an ultrasound to assess what was going on with her fibroids and also whether not the IUD was coming out. Patient feels better than she felt when she was seen at the time however she still occasionally just feels like her uterus is trying to spit something out according to the ultrasound the IUD is in the optimal position she does have several at least 5 fibroids and they are marginally bigger than they were during an ultrasound assessment in 2018 or 19. At that time she also had endometrial biopsy and she also had after some consultation and discussion a Mirena IU S placed to deal with hemorrhaging and menorrhagia with huge clots her periods this appeared with the Mirena however now she has this renewed discomfort. She is wondering about just taking her uterus out. Discussed that now that the FSH reveals that she in fact is in the menopausal range, 1 option is to simply take the Mirena out and see if that improves how she feels. She would like to still speak with a unit aide tech to talk about the possibility of hysterectomy if she is still feeling this uncomfortable. Plan made to have a visit next week for removal of the Mirena (considered removal today however there is no equipment available at this office today to grasp the Mirena to remove it). She agreed to give it time after that perhaps about a month to see how she feels and then she would like to have a visit set up in advance to speak with Dr. Husain so that she can still address the issue of possible hysterectomy. Perhaps she will feel better and not be feeling the same at that time. Additionally I discussed that there are new or options available but that would be something for Dr. Husain to discuss with her in terms of embolization procedures designed to shrink the fibroids. So she could discuss all of this with him when she sees him. I reviewed other labs that have been done as well and in addition she spoke with Dr. Jaramillo this week and he ordered a CT scan for her to to investigate whether not any of her symptoms are intestinal and that is definitely were the of investigation. Patient was assisted today in the visit with her daughter so that while she understood me and I understood her for the most part she did look to her daughter for clarification. Her daughter intends to be with her if she can for the sticker machine operator consultation. Records were reviewed from 2018 and 2019 when she had the Mirena placed by Dr. Tian and also her negative endometrial biopsy results from that year as well Pap smear is still pending, Also discussed menopause as she is clearly in it now judging by the elevated FSH. Does experience the vaginal discomfort with intercourse---Discussed normal changes that happen premenapausally, perimenapausally, and postmenopausally, and ways to handle them. Discussed the normal variation, and the range of experiences that women experience. Discussed nutrition, health, need for exercise, both weight-bearing and aerobic. Also discussed the normal changes that happen with vaginal mucosal thinning and sensitivity, and simple more natural ways of handling these challenges.'' Orders: Orders AMB IUD Insertion/Removal - Patient Supply Today N95.1 - Menopausal and female climacteric states, Z30.432 - Encounter for removal of intrauterine contraceptive device Coding Level of Care Code Est Pt Level 3 (06534) Diagnoses Menopausal symptom N95.1 Encounter for IUD removal Z30.432 Perimenopausal symptoms N95.1 Abnormal uterine bleeding (AUB) N93.9 History of uterine fibroid Z86.018 CPT Codes Details - CPT: 50074-ZOP Removal ([id number])
[2024-02-05 10:22] VITALS: BP 138/80; BMI 27.1
== END 2024-02-05 11:19 | disposition home or self-care (01) ==
LOC: HO.HWSM 10:15
PROVIDERS: PCP Internal Medicine; Visit Provider Advanced Practice Midwife
DX: Z30.432 Encounter for removal of intrauterine contraceptive device (principal)
CPT/HCPCS: 58301

== ENCOUNTER → 2024-02-05 10:15 | Outpatient (BNVA) | payer BC, SELFPAY | PROVIDERS: PCP Internal Medicine; Visit Provider Advanced Practice Midwife | DX: Z30.432 Encounter for removal of intrauterine contraceptive device (principal); N95.1 Menopausal and female climacteric states; N93.9 Abnormal uterine and vaginal bleeding, unspecified | CPT/HCPCS: 58301 ==

== ENCOUNTER 2024-02-12 | Outpatient (REF) | payer BC, SELFPAY | END 2024-02-12 00:01 | disposition home or self-care (01) | LOC: HO.HHCLNP | PROVIDERS: Visit Provider Internal Medicine | DX: R10.32 Left lower quadrant pain (principal) | CPT/HCPCS: 87086; 87088; 87186 ==

== ENCOUNTER 2024-02-19 21:07 | Emergency (ER) | payer BC, SELFPAY ==
--- NOTE | ~2024-02-19 | CT_ITS ---
EXAMINATION: CT ABDOMEN AND PELVIS WITH CONTRAST CLINICAL INFORMATION: Abdominal pain COMPARISON: Pelvic ultrasound 01/17/2024 TECHNIQUE: Multidetector volumetric images were obtained from the superior aspect of the liver through the pubic symphysis following administration 85 mL of Omnipaque 350 intravenous contrast. Sagittal and coronal reformatted images were obtained on the technologist's workstation. Oral contrast: No This CT examination was performed using dose optimization techniques as appropriate, variously including the following: *Automated exposure control *Adjustment of mA and/or kV according to patient size (this includes techniques or standardized protocols for targeted exams where dose is matched to indication/reason for exam; i.e. extremities or head) *Use of iterative reconstruction technique DLP: 914 mGy-cm FINDINGS: LUNG BASES: There is a 3 mm pleural-based left lower lobe lung nodule (4:82). Mild scarring/atelectasis is seen at both lung bases. LIVER, GALLBLADDER, AND BILIARY TREE: The liver is normal in size, shape, and attenuation. No focal hepatic lesion or biliary ductal dilatation is present. The gallbladder is unremarkable with no evidence of radiopaque gallstones, gallbladder wall thickening, or obvious pericholecystic inflammatory changes. PANCREAS: Unremarkable. SPLEEN: Unremarkable. ADRENAL GLANDS: Unremarkable. KIDNEYS AND URETERS: The kidneys are normal in size, shape, and attenuation. No hydronephrosis, hydroureter, or calculi seen. No perinephric stranding. Some tiny benign lower pole right side Bosniak class I renal cyst or noted which require no additional imaging or follow up. No solid renal masses are seen. BLADDER: Unremarkable. GASTROINTESTINAL TRACT: The small and large bowel are unremarkable. The appendix is unremarkable. ABDOMINAL WALL: No significant hernia is appreciated. LYMPH NODES: No retroperitoneal lymphadenopathy. VASCULAR: Unremarkable. PELVIC VISCERA: Anteverted uterus with a lobular contour and some calcifications consistent with the uterine fibroid seen on the prior pelvic CT. An abnormal adnexal mass or free intraperitoneal fluid is not seen. OSSEOUS STRUCTURES: Unremarkable. CT/CT abdomen pelvis w IV con IMPRESSION: 1. A cause for the patient's abdominal pain has not been found. 2. Incidental note made of a 3 mm left lower lobe lung nodule, uterine fibroids and other findings described above. According to the UPDATED 2017 Fleischner Society recommendations, the advised follow-up imaging for solid nodules <6 mm in the middle/lower lobes is no routine follow up.
[2024-02-19 21:52] VITALS: BP 175/91; PULSE 71; RESP 24; TEMP 36.8; O2SAT 98; BMI 27.2
[2024-02-19 22:12] LABS: MANUAL DIFF FLAG NO
[2024-02-19 22:13] LABS: Basophils Percent Auto 0.4 % (0-2); Eosinophils Absolute Auto 0.2 X10*3/uL (0.0-0.4); Eosinophils Percent Auto 2.2 % (0-4); Hematocrit 42.3 % (37.0-47.0); Hemoglobin 14.8 g/dl (12.0-16.0); Imm Gran Abs Auto 0.02 X10*3/uL (0.00-0.03); Imm Gran Pct Auto 0.3 % (0.0-0.4); Lymphocytes Absolute Auto 2.3 X10*3/uL (1.2-4.9); Lymphocytes Percent Auto 32.7 % (20-40); Mean Corpuscular Hemoglobin 30.6 pg (27.0-33.0); Mean Corpuscular Volume 87.4 fL (80.0-98.0); Mean Platelet Volume 10.8 fL (9.4-12.3); Monocytes Absolute Auto 0.4 X10*3/uL (0.1-1.2); Neutrophils Absolute Auto 4.1 x10*3/uL (2.0-8.3); Neutrophils Percent Auto 59.4 % (45-73); Platelet Count 227 X10*3/uL (160-400); Red Blood Count 4.84 X10*6/uL (4.20-5.50); Red Cell Distribution Width 12.4 % (11.0-16.0)
[2024-02-19 22:27] LABS: Alanine Aminotransferase 18 U/L (0-31); Albumin Level 4.7 g/dL (3.5-5.0); Alkaline Phosphatase 77 U/L (39-117); Anion Gap 12 (12-20); Aspartate Amino Transferase 21 U/L (5-31); Bilirubin Total 0.3 mg/dL (0.0-1.0); Blood Urea Nitrogen 18 mg/dL (9-16); Calcium 9.5 mg/dL (8.4-10.2); Carbon Dioxide 25 mmol/L (22-29); Chloride 109 mmol/L (96-108); Creatinine Clr Calc Pharmacy 73.4; Estimated Glomerular Filt Rate > 60; Glucose Random 96 mg/dL (60-115); Potassium 4.4 mmol/L (3.3-5.1); Sodium 142 mmol/L (135-145); Total Protein 7.8 g/dL (6.5-8.0)
[2024-02-20 01:44] LABS: Appearance Urine Clear; Color Urine Yellow; Glucose Urine UA Negative (Negative); Leukocyte Esterase Urine Negative (Negative); Nitrite Urine Negative (Negative); Specific Gravity - Urine <= 1.005 (1.005-1.025); Urine Blood Negative (Negative); Urine Ketones Negative (Negative); Urine Protein Negative (Neg-Trace)
[2024-02-20 01:47] LABS: Bacteria Urine None Seen (None Seen); Hyaline Casts Urine 0-2 /LPF (0-2); RBC Urine 0-2 /HPF (0-2); Squamous Epithelial Cell Urine 0-2 /HPF (0-2); WBC Urine 0-5 /HPF (0-5)
[2024-02-20 05:20] VITALS: BP 180/80; PULSE 65; RESP 18; TEMP 36.6; O2SAT 99
--- NOTE | 2024-02-20 05:23 | PC.NURSE ---
pt from home, a&ox4, respirations even and unlabored, reporting 2 months of lower abdominal cramping with associated intermittent vaginal bleeding. pt reports normal BM and urinary habits. pt reports normal PO intake. pt denies n/v/d and denies chest pain at this time.
--- NOTE | 2024-02-20 06:30 | ED.GENADULT ---
HPI - General Adult General Chief complaint: Abdominal Pain Stated complaint: worsening pelvic pain and pressure Time Seen by Provider: 02/20/24 06:30 Source: patient and spanish medical interpreter (all interactions with this patient were had with an [facility] [place] medical interpreter at the bed side facilitating communication) Mode of arrival: ambulatory Limitations: language barrier (patient is Arabic speaking only, all interactions with this patient were had with an [facility] [place]anish medical interpreter at the bed side facilitating communication) History of Present Illness HPI narrative: Patient is a 53 year old assigned female at with a history of uterine fibroids presenting to the emergency department today with continued abdominal pain. Patient states that over the last few months she has had lower abdominal pain. Patient states that she sees OBGYN here and had an ultrasound that showed uterine fibroids. Patient states that they removed her IUD in hopes it would help with the pain but the pain persists. Patient states that a week ago she had been diagnosed with a UTI and last night, she finished her antibiotic for it. Patient denies any dizziness, lightheadedness, nausea, vomiting, fever, chills, blurry vision, double vision, loss of vision, chest pain, difficulty breathing, shortness of breath, back pain, night sweats, pain with urination, increased urinary frequency, increased urinary urgency, blood in her urine or stool, vaginal bleeding, vaginal discharge, syncope or a near syncopal episode, recent trauma or falls, bowel incontinence, bladder incontinence, bowel retention, bladder retention, or any other complaints at this time. Onset (ago): month(s) Location: abdomen Severity: mild Severity scale (1-10): 3 Quality: aching and dull Pain Consistency: intermittent Relieving factors: none Exacerbating factors: none Associated symptoms: denies other symptoms Treatments prior to arrival: other (antibiotic for UTI) Related Data Home Medications Medication Instructions Recorded Confirmed alprazolam 0.25 mg tablet 0.5 mg PO BEDTIME PRN Anxiety 09/06/21 02/05/24 quetiapine 25 mg tablet (Seroquel) 100 mg PO DAILY 09/06/21 02/05/24 sertraline 25 mg tablet (Zoloft) 50 mg PO DAILY 09/06/21 02/05/24 zolpidem 10 mg tablet 10 mg PO BEDTIME PRN Insomnia 09/06/21 02/05/24 levonorgestrel 21 mcg/24 hours (8 intrauterine 04/14/22 03/06/24 yrs) 52 mg intrauterine device (Mirena) lisinopril 10 mg tablet 10 mg PO QAM 07/24/22 02/05/24 levofloxacin 250 mg tablet 250 mg PO DAILY 02/05/24 02/05/24 Allergies Allergy/AdvReac Type Severity Reaction Status Date / Time No Known Allergies Allergy Verified 02/19/24 22:00 Review of Systems Constitutional: Constitutional: Reports no additional constitutional complaints, Denies chills, Denies fever(s) and Denies night sweats Eyes: Eyes: Reports no additional eye complaints, Denies blurry vision, Denies change in vision, Denies diplopia, Denies eye discharge, Denies loss of vision and Denies eye pain ENT: Denies dizziness Cardiovascular: Cardiovascular: Reports no additional cardiovascular complaints, Denies chest pain, Denies lightheadedness, Denies Loss of Consciousness and Denies dyspnea Respiratory: Respiratory: Reports no additional respiratory complaints and Denies dyspnea Gastrointestinal: Gastrointestinal: Reports no additional gastrointestinal complaints, Reports abdominal pain, Denies melena, Denies hematochezia, Denies change in bowel habits and Denies change in stool character Genitourinary: Genitourinary: Denies hematuria, Denies urinary frequency, Denies dysuria, Denies urinary incontinence, Denies urinary hesitancy and Denies urinary urgency Musculoskeletal: Musculoskeletal: Reports no additional musculoskeletal complaints, Denies numbness and Denies tingling Neurologic: Denies dizziness, Denies loss of vision, Denies numbness and Denies tingling Psychiatric: Psychiatric: Reports no additional psychiatric complaints Endocrine: Endocrine: Reports no additional endocrine complaints Hematologic/Lymphatic: Hematologic/Lymphatic: Reports no additional hematologic/lymphatic complaints Allergic/Immunologic: Allergic/Immunologic: Reports no additional allergic/immunologic complaints PMFSH Past Medical History Attestation statement: The following information was validated with the patient. Source: old records reviewed, nursing notes reviewed and other (all interactions with this patient were had with an [facility] [place]anish medical interpreter at the bed side facilitating communication) Medical History Anxiety High blood pressure Depression Surgical History History of tooth extraction Hx of breast biopsy History of section Family History Family History Mother Uterine cancer Social History Social History Patient Tobacco Use Status: Never used Tobacco Smoked in Last 30 Days: No Use of substances other than those prescribed or required for medical reasons: No Advance Directives: Yes Advance Directives on File: Yes Advance Directives Date on File: 09/16/20 Current occupational status: employed 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 Physical Exam ED Vital Signs: Vital Signs - 24 hr 02/19/24 21:52 02/20/24 05:20 02/20/24 07:31 Temperature 98.3 F 97.8 F 97.9 F Pulse Rate 71 65 71 Respiratory Rate 24 H 18 16 Blood Pressure 175/91 H 180/80 H 154/89 H Pulse Oximetry 98 99 98 Oxygen Delivery Method Room Air Room Air Room Air BMI result Body Mass Index 27.2 Const General: cooperative, no acute distress, alert and awake Nutritional Appearance: well nourished Orientation/consciousness: patient oriented x3 Limitations: no limitations HENMT Head: Yes normal to inspection and Yes atraumatic Ears: hearing grossly normal bilaterally and external ears normal General nose exam: Normal external nose present, no nasal discharge noted and no epistaxis Face and sinus: Yes normal facial exam, No abrasion and No laceration Mouth: Normal oral and palatal mucosa present, no drooling and no muffled voice Eyes General: appearance normal, both eyes and all related structures Periorbital: periorbital findings normal Eyelids: Yes eyelids normal Conjunctivae: conjunctivae normal Pupils: Equal, round and reactive pupils present EOM: EOMs intact bilaterally Neck Neck: Yes normal visual inspection, Yes full ROM and Yes no lymphadenopathy Chest Chest palpation & inspection: normal inspection of the chest Resp Effort & Inspection: normal respiratory effort and able to speak in complete sentences GI Inspection: Yes normal to inspection Palpation (GI): Soft to palpation, not firm, Tenderness to palpation present (GI), no guarding and not rigid Neuro General: patient oriented x3 and moves all extremities Cranial nerves: Yes Equal, round and reactive pupils present Cognition (Neuro): normal cognition Motor exam (neuro): 5/5 motor strength present throughout Sensory Exam: Normal double simultaneous stimulation for sensation Coordination: [id number] test normal Extrem General: Yes normal to inspection, Yes full ROM and Yes capillary refill normal Psych Appearance: grossly normal Mental Status: mental status grossly normal Affect: normal affect Attitude: cooperative Thought process: Normal thought process present Thought content: Normal thought content present Insight: Good insight present (Psych) Medications Administered Discontinued Medications Generic Name Dose Route Start Last Admin Trade Name Nora PRN Reason Stop Dose Admin Sodium Chloride 1,000 mls @ 999 mls/hr 02/20/24 07:00 02/20/24 08:00 Ns IV 02/20/24 08:00 Infused .Q1H1M GRIS Infusion Iohexol 100 ml 02/20/24 08:15 02/20/24 08:15 Iohexol 350 Mg/Ml 100 Ml Infus..Btl IV 02/20/24 08:16 85 ml ONCE ONE Administration Morphine Sulfate 4 mg 02/20/24 07:03 02/20/24 08:45 Morphine Sulfate 4 Mg/Ml Cartridge IVPUSH 02/20/24 07:04 4 mg ONCE ONE Administration Protocol Ondansetron HCl 4 mg 02/20/24 06:48 02/20/24 08:45 Ondansetron Hcl 4 Mg/2 Ml Vial IVPUSH 02/20/24 06:49 4 mg ONCE ONE Administration Medical Decision Making Medical Decision Making MDM Narrative: Patient is a 53 year old assigned female at with a history of uterine fibroids presenting to the emergency department today with abdominal pain. Patient's physical exam was as noted in the physical exam portion of this note. Patient's blood work was unremarkable. Patient's urine showed no acute process. Patient's CT abdomen/pelvis showed no acute process. I explained my physical exam findings as well as all test results to the patient. I answered all questions asked by the patient. I stressed the importance of the patient taking her medication as prescribed. I stressed the importance of the patient following up with her primary care provider and her OBGYN. I stressed the importance of the patient returning to the emergency department immediately if her symptoms were to worsen or if she were to develop any dizziness, shortness of breath, difficulty breathing, chest pain, blurry vision, loss of vision, nausea, vomiting, abdominal pain, fever, chills, back pain, or any other complaints. Patient verbalized agreement and understanding with this treatment plan and discharge. Differential Diagnosis Differential Diagnoses: The differential diagnosis associated with the presentation includes Abdominal pain Uterine fibroids Diverticulitis Colitis Gastroenteritis Admission/Observation Consideration of admission/observation: Escalation of care including admission/observation considered Patient would have been admitted to the hospital had her work up had any findings where hospital admission was appropriate and her clinical presentation warranted hospital admission. Lab Data [facility] Lab Attestation statement: I reviewed the patient's lab results. My interpretation of these results are in the [facility] Rationale portion of this note. 02/19/24 22:09 02/19/24 22:09 Labs: Lab Results 02/19/24 02/20/24 02/20/24 Range/Units 22:09 01:33 08:42 WBC 7.0 (4.8-10.8) X10*3/uL RBC 4.84 (4.20-5.50) X10*6/uL Hgb 14.8 (12.0-16.0) g/dl Hct 42.3 (37.0-47.0) % MCV 87.4 (80.0-98.0) fL MCH 30.6 (27.0-33.0) pg MCHC 35.0 (31.0-35.0) g/dl RDW 12.4 (11.0-16.0) % Plt Count 227 (160-400) X10*3/uL MPV 10.8 (9.4-12.3) fL Immature Gran % (Auto) 0.3 (0.0-0.4) % Neut % (Auto) 59.4 (45-73) % Lymph % (Auto) 32.7 (20-40) % [place] % (Auto) 5.0 (2-11) % Eos % (Auto) 2.2 (0-4) % Baso % (Auto) 0.4 (0-2) % Lymph # (Auto) 2.3 (1.2-4.9) X10*3/uL [place] # (Auto) 0.4 (0.1-1.2) X10*3/uL Eos # (Auto) 0.2 (0.0-0.4) X10*3/uL Baso # (Auto) 0.0 (0.0-0.2) X10*3/uL Abs Immat Gran (auto) 0.02 (0.00-0.03) X10*3/uL Absolute Neuts (auto) 4.1 (2.0-8.3) x10*3/uL Absolute Nucleated RBC 0.000 (0.0-0.012) X10*3/uL Nucleated RBC % (auto) 0.0 (0.0-0.2) /100WBC Sodium 142 (135-145) mmol/L Potassium 4.4 (3.3-5.1) mmol/L Chloride 109 H (96-108) mmol/L Carbon Dioxide 25 (22-29) mmol/L Anion Gap 12 (12-20) BUN 18 H (9-16) mg/dL Creatinine 0.78 (0.5-1.4) mg/dL Estim Creat Clear Calc 73.4 Estimated GFR > 60 Random Glucose 96 (60-115) mg/dL Calcium 9.5 (8.4-10.2) mg/dL Magnesium 2.4 (1.6-2.6) mg/dL Total Bilirubin 0.3 (0.0-1.0) mg/dL AST 21 (5-31) U/L ALT 18 (0-31) U/L Alkaline Phosphatase 77 (39-117) U/L Total Protein 7.8 (6.5-8.0) g/dL Albumin 4.7 (3.5-5.0) g/dL Lipase 32 (8-78) U/L Urine Color Yellow Urine Appearance Clear Urine pH 6.0 (5.0-9.0) Ur Specific [place] <= 1.005 (1.005-1.025) Urine Protein Negative (Neg-Trace) mg/dL Urine Glucose (UA) Negative (Negative) mg/dL Urine Ketones Negative (Negative) mg/dL Urine Blood Negative (Negative) Urine Nitrite Negative (Negative) Ur Leukocyte Esterase Negative (Negative) Urine RBC 0-2 (0-2) /HPF Urine WBC 0-5 (0-5) /HPF Ur Squamous Epith Cells 0-2 (0-2) /HPF Urine Bacteria None Seen (None Seen) Hyaline Casts 0-2 (0-2) /LPF Influenza Type A (PCR) NEGATIVE (Negative) Influenza Type B (PCR) NEGATIVE (Negative) RSV RNA Qual (PCR) NEGATIVE (Negative) SARS-CoV-2 RNA (RT-PCR) NEGATIVE (Negative) Independent Interpretation I performed an independent interpretation of an: CT Scan Interpretation: My interpretation is in agreement with the radiologist's impression of this imaging study. EXAMINATION: CT ABDOMEN AND PELVIS WITH CONTRAST CLINICAL INFORMATION: Abdominal pain COMPARISON: Pelvic ultrasound 01/17/2024 TECHNIQUE: Multidetector volumetric images were obtained from the superior aspect of the liver through the pubic symphysis following administration 85 mL of Omnipaque 350 intravenous contrast. Sagittal and coronal reformatted images were obtained on the technologist's workstation. Oral contrast: No This CT examination was performed using dose optimization techniques as appropriate, variously including the following: *Automated exposure control *Adjustment of mA and/or kV according to patient size (this includes techniques or standardized protocols for targeted exams where dose is matched to indication/reason for exam; i.e. extremities or head) *Use of iterative reconstruction technique DLP: 914 mGy-cm FINDINGS: LUNG BASES: There is a 3 mm pleural-based left lower lobe lung nodule (4:82). Mild scarring/atelectasis is seen at both lung bases. LIVER, GALLBLADDER, AND BILIARY TREE: The liver is normal in size, shape, and attenuation. No focal hepatic lesion or biliary ductal dilatation is present. The gallbladder is unremarkable with no evidence of radiopaque gallstones, gallbladder wall thickening, or obvious pericholecystic inflammatory changes. PANCREAS: Unremarkable. SPLEEN: Unremarkable. ADRENAL GLANDS: Unremarkable. KIDNEYS AND URETERS: The kidneys are normal in size, shape, and attenuation. No hydronephrosis, hydroureter, or calculi seen. No perinephric stranding. Some tiny benign lower pole right side Bosniak class I renal cyst or noted which require no additional imaging or follow up. No solid renal masses are seen. BLADDER: Unremarkable. GASTROINTESTINAL TRACT: The small and large bowel are unremarkable. The appendix is unremarkable. ABDOMINAL WALL: No significant hernia is appreciated. LYMPH NODES: No retroperitoneal lymphadenopathy. VASCULAR: Unremarkable. PELVIC VISCERA: Anteverted uterus with a lobular contour and some calcifications consistent with the uterine fibroid seen on the prior pelvic CT. An abnormal adnexal mass or free intraperitoneal fluid is not seen. OSSEOUS STRUCTURES: Unremarkable. CT/CT abdomen pelvis w IV con IMPRESSION: 1. A cause for the patient's abdominal pain has not been found. 2. Incidental note made of a 3 mm left lower lobe lung nodule, uterine fibroids and other findings described above. According to the UPDATED 2017 Fleischner Society recommendations, the advised follow-up imaging for solid nodules <6 mm in the middle/lower lobes is no routine follow up. Dictated By: Anselmo Beard MD Signed By: Electronically signed by Anselmo Beard MD 02/20/24 0828 Radiology Impression Discussion of test interpretation with radiology: I have reviewed the radiologist's reading. Critical Care Time Critical Care Time Critical Care Time: Yes Total Critical Care Time: 78 Attestation: I spent 78 minutes of Critical Care Time with this patient. This does not include time spent on separately reported billable procedures. Discharge Plan Discharge Clinical Impression: Abdominal pain Patient Disposition: Home, Self-Care Instructions: Abdominal Pain (ED) Additional Instructions: Your lab work was normal. Your urine test was normal. Your CT scan of the abdomen/pelvis showed the already known uterine fibroids but was otherwise normal. Follow up with your primary care provider and an OBGYN. Return to the emergency department immediately if your symptoms worsen or if you develop any dizziness, shortness of breath, difficulty breathing, chest pain, blurry vision, loss of vision, nausea, vomiting, abdominal pain, fever, chills, back pain, or any other complaints. Green an?lisis de laboratorio era normal. El an?lisis de orina fue normal. La tomograf?a computarizada de abdomen/pelvis mostr? los miomas uterinos ya conocidos, mega por lo dem?s fue normal. Nini un seguimiento con green m?dico de atenci?n primaria y un ginec?logo obstetra. Acuda inmediatamente al servicio de urgencias si olu s?ntomas empeoran o si presenta mareos, falta de aire, dificultad para respirar, dolor tor?cico, visi?n borrosa, p?rdida de visi?n, n?useas, v?mitos, dolor abdominal, fiebre, escalofr?os, dolor de espalda o cualquier otra molestia. Prescriptions: No Action lisinopril 10 mg tablet 10 mg PO QAM zolpidem 10 mg tablet 10 mg PO BEDTIME PRN (Reason: Insomnia) sertraline [Zoloft] 25 mg tablet 50 mg PO DAILY quetiapine [Seroquel] 25 mg tablet 100 mg PO DAILY alprazolam 0.25 mg tablet 0.5 mg PO BEDTIME PRN (Reason: Anxiety) Mirena 20 mcg/24 hours (7 yrs) 52 mg intrauterine device intrauterine levofloxacin 250 mg tablet 250 mg PO DAILY Referrals: Mark Thompson MD [Primary Care Provider] - Onel Husain MD [Physician] - Print Language: Arabic
--- NOTE | 2024-02-20 06:53 | PC.NURSE ---
iv access established, 20G place in right AC.
[2024-02-20] MEDS: 0.9 % Sodium Chloride 1,000 ML 999 ML IV (06:54)
[2024-02-20 07:27] LABS: Lipase 32 U/L (8-78); Magnesium 2.4 mg/dL (1.6-2.6)
[2024-02-20 07:31] VITALS: BP 154/89; PULSE 71; RESP 16; TEMP 36.6; O2SAT 98
[2024-02-20] MEDS: iohexoL 350 MG/ML 100 ML INFUS..BTL IV (08:15)
[2024-02-20] MEDS: ondansetron HCL 4 MG/2 ML VIAL IVPUSH (08:45)
[2024-02-20] MEDS: Morphine Sulfate 4 MG/ML CARTRIDGE IVPUSH (08:45)
--- NOTE | 2024-02-20 08:49 | PC.NURSE ---
A/O X 4 NO SOB/KWASI NOTED SPEAKS IN FULL SENTENCES. C/O LOWER ABD PAIN 06/10. MED X 1 WITH ZOFRAN 4MG AND MORPHINE 4MG IV. PT AWARE OF PLAN OF CARE WILL CONTINUE TO MONITOR.
[2024-02-20 09:49] LABS: Influenza A PCR NEGATIVE (Negative); Influenza B PCR NEGATIVE (Negative); Resp Syncy Virus RNA Qual PCR NEGATIVE (Negative); SARS COV2 PCR INHOUSE NEGATIVE (Negative)
[2024-02-20 10:53] VITALS: BP 117/70; PULSE 75; RESP 16; TEMP 36.6; O2SAT 98
== END 2024-02-20 10:53 | disposition home or self-care (01) ==
PROVIDERS: Physician Assistant Medical; Emergency Provider Emergency Medicine; PCP Internal Medicine
DX: R10.2 Pelvic and perineal pain (principal); N39.0 Urinary tract infection, site not specified; Z11.52 Encounter for screening for COVID-19; Z20.822 Contact with and (suspected) exposure to COVID-19; Z79.899 Other long term (current) drug therapy
CPT/HCPCS: 0241U; 36415; 74177; 80053; 81001; 83690; 83735; 85025; 96361; 96374; 96375; 99284; 99285; J2270; J2405; Q9967

== ENCOUNTER 2024-03-11 09:25 | Outpatient (AMB) | payer BC, SELFPAY ==
[2024-03-11 09:38] VITALS: BP 126/82; BMI 27.2
--- NOTE | 2024-03-11 09:38 | MHC.OFFVIS ---
Intake Vital Signs 03/11/24 09:38 Height 5 ft 2 in Weight 149 lb BMI 27.2 BP 126/82 Intake Visit Reasons: Per Tara Mckenzie, Consultation re fibroids Commercial Leasing Agent Required: Yes Commercial Leasing Agent Language: Tire Fixer Name: Ambrocio [id number] Information Interpreted: non-clinical & clinical Valve Machine Operator: Valve Machine Operator Present ([place]) Accompanied by: Daughter Allergies No Known Allergies Allergy (Verified 03/11/24 09:39) Is last menstrual period known: No Post menopausal: Yes Patient : No HPI HPI Comments History of Present Illness Details Presenting referred from Tara Mckenzie CNM regarding uterine myomas recently seen on pelvic ultrasound in 01/25. Previous ultrasound was done in 01/19 Pelvic ultrasound done in 01/25 showed the following: Uterus: Anteverted; measuring 7.9 cm in length, 3.6 cm in AP diameter and 4.3 cm in width. Calcifications are seen in lower uterine segment and uterine cervix. Multiple myometrial mass lesions are found. Posterior upper uterine body lesion measures 2.4 x 2.3 x 2.6 cm in size (previously 2.6 x 2.9 x 3.1 cm). Uterine fundal lesion measures 1.4 x 1.2 x 1.4 cm in size (previously 1.5 x 0.7 x 1.1 cm). Anterior upper uterine body lesion measures 1.5 x 1.5 x 1.4 cm in size (previously 0.7 x 0.5 x 0.7 cm). Anterior mid uterine body lesion measures 1.0 x 0.7 x 0.9 cm in size (previously 0.7 x 0.5 x 0.6 cm). Linear echogenicities corresponding to T shaped intrauterine contraceptive device are seen in optimal position. Echotexture: normal sonographic appearance Endometrial Thickness: 0.82 cm. Right ovary: 2.7 x 1.3 x 2.0 cm (SAG x AP x TRV), calculated volume of 3.8 mL, with normal echotexture. Previously 2.9 x 1.7 x 1.7 cm (SAG x AP x TRV), calculated volume of 4.9 mL Left ovary: 1.7 x 1.0 x 1.2 cm (SAG x AP x TRV), calculated volume of 1.1mL, with normal echotexture. Previously 1.4 x 2.0 x 1.2 cm (SAG x AP x TRV), calculated volume of 1.7 mL No free fluid is present. Limited view of the urinary bladder shows no abnormality. 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 Female Reproductive History Menstrual Age of Menarche: 10 control method: none Date of last pap smear: 01/16/24 (negative) Review of Systems Const All systems reviewed & are unremarkable except as noted in HPI and below Reports as per HPI and Reports no additional complaints GI Reports no additional complaints Reports no additional complaints Physical Exam Vital Signs: Last Vital Signs BP 126/82 03/11/24 09:38 BMI result Body Mass Index 27.2 General: Yes no CVA tenderness External Female Exam: normal appearance of the urethra and other (Right 0.3 cm labia majora dark lesion) Speculum Exam - Vagina: normal appearance of the vagina, normal palpation, no lesions and no masses Speculum Exam - Cervix: normal appearance of the cervix, normal palpation, no lesions, no masses and nontender Bimanual exam- vagina & uterus: normal bimanual exam, normal palpation, uterine size normal, normal palpation, uterine shape normal, No Cervical tenderness present and non-tender Bimanual Exam- Adnexa, other: normal adnexae Back/Spine/Pelvis Back: no CVA tenderness Assessment & Plan Assessment & Plan (1) Uterine myoma: Code(s): D25.9 - Leiomyoma of uterus, unspecified Plan: Discussed with the patient the findings on pelvic ultrasound & the risk of myosarcoma; discussed with the patient the options of treatment including expectant management versus hysterectomy; the pros and cons, risks benefits of each approach were discussed with the patient including the fact that in cases of myosarcoma, surgical treatment can lead to early diagnosis and positively affects the prognosis; after further discussion, the patient decided to proceed with expectant management. Will repeat pelvic ultrasound periodically. Instructions given to patient to call in case any of the following occurs: pressure symptoms, abnormal uterine bleeding, pelvic pain; and to schedule 3 months ultrasound follow-up with an appointment for reassessment . All questions answered, the patient verbalized understanding and agreed with the plan . (2) Postmenopausal bleeding: Comment: With thickened endometrial by ultrasound 8.2 mm Code(s): N95.0 - Postmenopausal bleeding Plan: Mammogram ordered. Discussed with the patient the pelvic ultrasound findings, the endometrial stripe thickenss measured by ultrasound was more than 4mm. The negative predictive value, positive predictive value, Sensitivity, specificity of using ultrasound measurement of endometrial stripe to detecting endometrial pathology including hyperplasia , polyp or cancer were discussed with the patient. Recommended to the patient that the next step is an endometrial sampling . Instructions given the patient to schedule EMB appointment within 2 weeks. All questions were answered pt verbalized understanding (3) Vulvar lesion: Code(s): N90.89 - Other specified noninflammatory disorders of vulva and perineum Plan: Discussed with the patient the finding on physical exam showing a dark 0.3 cm right labia majora lesion, recommended excisional biopsy. Instructions given the patient to schedule an appointment for the procedure. All questions answered, the patient verbalized understand Orders: Orders MM tomosynthesis screening BI Today Z12.31 - Encounter for screening mammogram for malignant neoplasm of breast US pelvic and transvaginal 5 Weeks D25.9 - Leiomyoma of uterus, unspecified Coding Level of Care Code Est Pt Level 3 (19697) Diagnoses Uterine myoma D25.9 Postmenopausal bleeding N95.0 Vulvar lesion N90.89
== END 2024-03-11 11:08 | disposition home or self-care (01) ==
PROVIDERS: PCP Internal Medicine; Visit Provider Obstetrics & Gynecology
DX: D25.9 Leiomyoma of uterus, unspecified (principal); N95.0 Postmenopausal bleeding; N90.89 Other specified noninflammatory disorders of vulva and perineum
CPT/HCPCS: 99213

== ENCOUNTER → 2024-03-11 09:25 | Outpatient (BNVA) | payer BC, SELFPAY | PROVIDERS: PCP Internal Medicine; Visit Provider Obstetrics & Gynecology ==

== ENCOUNTER 2024-03-19 07:46 | Outpatient (AMB) | payer BC, SELFPAY ==
--- NOTE | 2024-03-19 08:14 | A.OFFVIS_ITS ---
Intake Vital Signs 03/19/24 08:23 Height 5 ft 2 in Weight 147 lb 11.355 oz BMI 27.0 BP 104/60 Intake Visit Reasons: EMB/Labial mass lesion excision Bilingual Patient Support Caseworker Required: Yes Bilingual Patient Support Caseworker Language: Alternative Financing Specialist Name: Jaky ARORA Information Interpreted: non-clinical & clinical Relocation Specialist: Relocation Specialist Present (Jaky ARORA) Accompanied by: Self / Same As Patient Allergies No Known Allergies Allergy (Verified 03/19/24 08:24) Post menopausal: Yes HPI HPI Comments History of Present Illness Details Presenting for EMB and right labial lesion excision PFSH Medical History Anxiety High blood pressure Depression Surgical History History of tooth extraction Hx of breast biopsy History of section Family History Mother Uterine cancer Social History Patient Tobacco Use Status: Never used Tobacco Advance Directives Date on File: 09/16/20 Current occupational status: employed 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 hysteroscopy D&C) & the risks were discussed with the patient includ ing but not limited: pain, uterine perforation, bleeding, infection, possible injury to bladder, bowel, ureter, possible need for blood transfusion with all its possible risks. The patient verbalized understanding all questions answered and signed consent. The patient was placed into the dorsal lithotomy position; a speculum was inserted in the vagina. Using aseptic technique for the procedure, the cervix was cleansed with Betadine. The anterior lip of the cervix was grasped with a single tooth tenaculum. The uterus was sounded to 7 cm with a 4 mm Pipelle was used. Tissues samples were obtained and placed in formalin, in a patient labeled container and sent to the pathology department. At the end of the procedure, there was minimal bleeding noted The patient tolerated the procedure well and was discharged in good condition with the following instructions: Nothing in the vagina until the bleeding stops. No sex until the bleeding stops, to call if any of the following occurs: fever (>100.4), flu-like symptoms, abdominal pain, heavy bleeding, four smelling vaginal discharge. The patient was instructed to schedule a Follow up appointment in 2 weeks to discuss pathology results of the biopsy and treatment options. This note was generated with a voice recognition program. Some errors may have been overlooked during the review of this note. Sometimes these errors may affect the content or meaning of a given sentence. 07434-Tsbczihqvyh Biopsy LOW VISION THERAPIST Biopsy Before the procedure was started d/w patient the procedure, alternatives ( do nothing, medical rx), & all the risks associated with the procedure ( bleeding , infection, vulvar scarring, painful intercourse, injury to vessels, possible need for transfusion with all its risks) then patient signed the consent. Preop dx: Right dark vulvar lesion Op: Right dark vulvar lesion excision Post op: Same Anesthesia: Lidocaine 1% 3cc used Procedure: Using betadine the area was scrubbed and draped in the usual manner. 3 cc of lidocaine was used for anesthesia at the left vulvar lesion area ; using scissors and pickup theRight dark vulvar lesion was excised. Pressure was used for hemostasis. The patient tolerated the procedure well. Discharge Instructions: The patient was instructed to schedule an appointment in 2 weeks for follow-up and to call if temp>100.4, area of the biopsy redness or pain, nausea/vomiting. This note was generated with a voice recognition program. Some errors may have been overlooked during the review of this note. Sometimes these errors may affect the content or meaning of a given sentence. 72152-Myyunq of Vulva/Perineum Procedure code (CPT) selection complete Assessment & Plan Assessment & Plan (1) Postmenopausal bleeding: Comment: With thickened endometrial by ultrasound 8.2 mm Code(s): N95.0 - Postmenopausal bleeding Plan: EMB done, see procedure (2) Vulvar lesion: Code(s): N90.89 - Other specified noninflammatory disorders of vulva and perineum Plan: Right labial lesion excision done, see procedure note Orders: Orders AMB LOW VISION THERAPIST Biopsy Today N90.89 - Other specified noninflammatory disorders of vulva and perineum AMB Endometrial Biopsy Today N95.0 - Postmenopausal bleeding Coding Level of Care Code Procedure Only Diagnoses Postmenopausal bleeding N95.0 Vulvar lesion N90.89 CPT Codes Endometrial Biopsy - CPT: 72393-Yxnazfoillw Biopsy ([id number]) LOW VISION THERAPIST Biopsy - CPT: 48119-Ewhvaa of Vulva/Perineum ([id number])
[2024-03-19 08:23] VITALS: BP 104/60; BMI 27.0
== END 2024-03-19 08:42 | disposition home or self-care (01) ==
PROVIDERS: PCP Internal Medicine; Visit Provider Obstetrics & Gynecology
DX: N95.0 Postmenopausal bleeding (principal); N90.89 Other specified noninflammatory disorders of vulva and perineum
CPT/HCPCS: 56605; 58100

== ENCOUNTER 2024-03-19 07:46 | Outpatient (REF) | payer BC, SELFPAY | END 2024-03-19 07:47 | disposition home or self-care (01) | LOC: HO.LNP 07:46 | PROVIDERS: PCP Internal Medicine; Visit Provider Obstetrics & Gynecology | DX: N95.0 Postmenopausal bleeding (principal); N90.89 Other specified noninflammatory disorders of vulva and perineum | CPT/HCPCS: 56605; 58100; 88305; 88312 ==

== ENCOUNTER 2024-03-31 16:07 | Outpatient (REF) | payer BC, SELFPAY | END 2024-03-31 16:08 | disposition home or self-care (01) | LOC: HO.MAMMO 16:07 | PROVIDERS: PCP Obstetrics & Gynecology; Visit Provider Obstetrics & Gynecology | DX: Z12.31 Encounter for screening mammogram for malignant neoplasm of breast (principal) | CPT/HCPCS: 77063; 77067 ==

== ENCOUNTER → 2024-03-31 16:30 | Outpatient (BNV) | payer BC, SELFPAY | PROVIDERS: PCP Obstetrics & Gynecology; Visit Provider Radiology Diagnostic Radiology | DX: Z12.31 Encounter for screening mammogram for malignant neoplasm of breast (principal) | CPT/HCPCS: 77063; 77067 ==

== ENCOUNTER 2024-04-15 15:10 | Outpatient (REF) | payer BC, SELFPAY ==
--- NOTE | ~2024-04-15 | US_ITS ---
EXAMINATION: US PELVIS CLINICAL INFORMATION: Leiomyoma of uterus. COMPARISON: Pelvic ultrasound 01/17/2024. TECHNIQUE: Ultrasound of the pelvis is performed using both transabdominal and transvaginal transducers along with Doppler. Transvaginal imaging is performed due to inadequate visualization transabdominally. FINDINGS: Uterus: Limited visualization due to the uterine position. Most of the previously seen fibroids are not reproduced on the current study. One visible fibroid is stable to mildly increased in size measuring 1.5 cm compared to 1.0 cm. The uterus measures 6.6 x 3.0 x 3.7 cm. The endometrial stripe measures 5 mm. Adnexa: The right ovary measures 1.9 x 1.5 x 1.2 cm. The right ovary appears normal. The left ovary is not seen. No pelvic free fluid. US/US pelvic and transvaginal IMPRESSION: Limited visualization of the uterus. Fibroid disease likely not significantly changed from prior.
== END 2024-04-15 15:11 | disposition home or self-care (01) ==
LOC: HO.US 15:10
PROVIDERS: PCP Internal Medicine; Visit Provider Obstetrics & Gynecology
DX: D25.9 Leiomyoma of uterus, unspecified (principal)
CPT/HCPCS: 76830; 76856

== ENCOUNTER 2024-04-29 15:10 | Outpatient (REF) | payer BC, SELFPAY | END 2024-04-29 15:11 | disposition home or self-care (01) | LOC: HO.LNP 15:10 | PROVIDERS: PCP Internal Medicine; Visit Provider Obstetrics & Gynecology | DX: N39.0 Urinary tract infection, site not specified (principal) | CPT/HCPCS: 81002; 87086; 87088; 87186 ==

== ENCOUNTER 2024-04-29 15:10 | Outpatient (AMB) | payer BC, SELFPAY ==
--- NOTE | 2024-04-29 15:23 | MHC.OFFVIS ---
Vital Signs 04/29/24 15:26 Height 5 ft 2 in Weight 147 lb 11.355 oz BMI 27.0 BP 132/82 Intake Visit Reasons: US follow up/EMB Follow up Plate Developer Required: Yes Plate Developer Language: 4Th Grade Math Teacher Name: Jaky ARORA Information Interpreted: non-clinical & clinical Accompanied by: Daughter Allergies No Known Allergies Allergy (Verified 04/29/24 15:27) Post menopausal: Yes HPI Comments Details: The patient is presenting after endometrial biopsy/vulvar biopsy. The patient is complaining of urinary frequency and dysuria, no vaginal bleeding, no feverishness chills or abdominal pain. The patient has been having recurrent UTI's. The endometrial biopsy pathology report showed the following: A. Endometrium, biopsy: Superficial fragments of benign endometrium, endocervical and squamous epithelium; no atypia seen. B. Vulva, biopsy: Benign glandular cyst; no atypia identified. See comment. Comment (B): The differential includes a Bartholin cyst with metaplastic changes, dermoid cyst and sebaceous cyst. No features of malignancy are seen. Pelvic ultrasound done in 04/24 showed the following: Uterus: Limited visualization due to the uterine position. Most of the previously seen fibroids are not reproduced on the current study. One visible fibroid is stable to mildly increased in size measuring 1.5 cm compared to 1.0 cm. The uterus measures 6.6 x 3.0 x 3.7 cm. The endometrial stripe measures 5 mm. Adnexa: The right ovary measures 1.9 x 1.5 x 1.2 cm. The right ovary appears normal. The left ovary is not seen. No pelvic free fluid. 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 Reproductive History Menstrual Age of Menarche: 10 Review of Systems Const All systems reviewed & are unremarkable except as noted in HPI and below Reports as per HPI and Reports no additional complaints GI Reports no additional complaints Reports no additional complaints Physical Exam Vital Signs: Last Vital Signs BP 132/82 04/29/24 15:26 BMI result Body Mass Index 27.0 Assessment & Plan Assessment & Plan (1) Uterine myoma: Code(s): D25.9 - Leiomyoma of uterus, unspecified Category: Medical Plan: Discussed with the patient the finding on ultrasound with limited visualization, will order pelvic MRI evaluate the uterine myomas. Instructions given the patient to schedule MRI and a follow-up appointment. All questions answered, the patient verbalized understanding (2) Postmenopausal bleeding: Code(s): N95.0 - Postmenopausal bleeding Category: Medical Plan: Discussed with the patient the results of the endometrial biopsy showing inactive endometrium. Discussed with the patient the sensitivity, specificity, positive and negative predictive value, of endometrial biopsy in detecting endometrial pathology including but not limited to endometrial hyperplasia, cancer and other pathology; instructed the patient to call in case vaginal bleeding bleeding recurs, the next step will be to proceed with a diagnostic hysteroscopy/D&C for further endometrial sampling evaluation to rule out endometrial pathology. All questions answered and the patient verbalized understanding and agreed with the plan. (3) Vulvar lesion: Code(s): N90.89 - Other specified noninflammatory disorders of vulva and perineum Category: Medical Plan: Discussed with the patient the results of her vulvar biopsy pathology, the patient was reassured. Instructions given the patient to call in case of recurrence of any lesions, hard areas or open sores. (4) Recurrent UTI: Code(s): N39.0 - Urinary tract infection, site not specified Category: Medical Plan: Urine dip in the office showed microscopic hematuria will send urine for culture. The patient has been having recurrent UTIs, will treat with Macrobid 100 p.o. b.i.d. for 5 days refer to Urology for further management Orders: Orders MR pelvis wo/w con Today D25.9 - Leiomyoma of uterus, unspecified Referrals Urology Referral N39.0 - Urinary tract infection, site not specified Medications: New nitrofurantoin monohyd/m-cryst 100 mg (Macrobid) 100 mg PO BID 5 days 10 caps 0RF Coding Level of Care Code Est Pt Level 3 (14697) Diagnoses Uterine myoma D25.9 Postmenopausal bleeding N95.0 Vulvar lesion N90.89 Recurrent UTI N39.0
[2024-04-29 15:26] VITALS: BP 132/82; BMI 27.0
== END 2024-04-29 16:05 | disposition home or self-care (01) ==
PROVIDERS: PCP Internal Medicine; Visit Provider Obstetrics & Gynecology
DX: D25.9 Leiomyoma of uterus, unspecified (principal); N95.0 Postmenopausal bleeding; N90.89 Other specified noninflammatory disorders of vulva and perineum; N39.0 Urinary tract infection, site not specified
CPT/HCPCS: 99213

== ENCOUNTER 2024-06-08 08:38 | Outpatient (REF) | payer BC, SELFPAY ==
--- NOTE | ~2024-06-08 | MR_ITS ---
EXAMINATION: MR PELVIS WITHOUT AND WITH CONTRAST CLINICAL INFORMATION: Leiomyoma of uterus COMPARISON: Prior studies including the 04/15/2024 ultrasound and 02/20/2024 CT scan TECHNIQUE: Multiple routine MRI sequences through the pelvis were obtained on a high-field 1.5 Edie MRI. Pre and postcontrast images were evaluated utilizing 6.5 mL of Gadavist intravenous contrast. FINDINGS: Uterus is anteroverted measuring 7.4 x 3.4 x 4.0 cm in size. Endometrial cavity is unremarkable. Junctional zone is focally prominent but within upper limits of normal for size. In the posterior body of uterus there is a 2.7 cm T2 dark intramural fibroids seen. Additional smaller fibroids are noted including a 1.2 cm left fundal intramural fibroid and a anterior mid body 0.9 cm intramural fibroid. There are additional tiny T2 dark probable subcentimeter fibroids as well. I do not appreciate any suspicious lesion otherwise. The probable fibroids all demonstrate similar signal characteristics and mild enhancement. No suspicious adnexal mass. The ovaries are difficult to separate from adjacent structures but are grossly unremarkable where visualized. No significant free fluid. Bladder is decompressed with an incidental 1 cm fluid filled ureterocele at the left ureterovesicular junction. Symmetric muscle and bony signal MR/MR pelvis wo/w con IMPRESSION: 1. There are multiple small T2 dark intramural fibroids as described above. I do not appreciate any suspicious lesions otherwise. 2. Incidental 1 cm fluid filled ureterocele at the left ureterovesicular junction.
[2024-06-08] MEDS: gadobutroL 7.5 ML VIAL IVPUSH (10:19)
== END 2024-06-08 08:39 | disposition home or self-care (01) ==
LOC: HO.MRI 08:38
PROVIDERS: PCP Internal Medicine; Visit Provider Obstetrics & Gynecology
DX: D25.9 Leiomyoma of uterus, unspecified (principal)
CPT/HCPCS: 72197; A9585

== ENCOUNTER 2024-06-18 13:40 | Outpatient (REF) | payer BC, SELFPAY ==
[2024-06-19 05:18] LABS: HIV AB/AG Nonreactive (Nonreactive); HIV Num 1 0.05 S/CO (0.00-0.99); ~HepC Num1 0.06 S/CO (0.00-0.79); ~Hepatitis C Antibody Nonreactive (Nonreactive)
[2024-06-19 09:48] LABS: CT PCR NOT DETECTED (Not Detect.); NG PCR NOT DETECTED (Not Detect.)
[2024-06-21 22:04] LABS: RPR Rapid Plasma Reagin NON-REACTIVE (NON-REACTIVE)
== END 2024-06-18 13:41 | disposition home or self-care (01) ==
LOC: HO.HHCL 13:40
PROVIDERS: Visit Provider Internal Medicine
DX: R10.32 Left lower quadrant pain (principal); R10.2 Pelvic and perineal pain
CPT/HCPCS: 36415; 86592; 86803; 87389; 87491; 87591

== ENCOUNTER 2024-06-24 15:02 | Outpatient (AMB) | payer BC, SELFPAY ==
--- NOTE | 2024-06-24 15:13 | A.OFFVIS_ITS ---
Intake Visit Reasons: Recurrent UTI Intake Note: New Patient is present for Referral for Recurrent Urinary Tract Infections Her last UTI was a little over a month ago and patient was treated with Macrobid Patient's symptoms include Pelvic pressure with Frequent Urination Patient had a recent Ab Ultrasound PVR: 0 Allergies No Known Allergies Allergy (Verified 06/24/24 15:18) HPI Comments Details: Laurel is a pleasant Algerian-speaking female. She is a patient of Dr. Romero. She seen for the following urologic conditions - recurrent urinary tract infection Translation provided by daughter who is comfortable in this role. Recurrent UTI Three documented urinary tract infections over past 6 months E coli Bactrim and ampicillin resistant Discussed hydration strategies Discussed bowel protocol for constipation. Has IBS with alternating loose and firm bowel movements. 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 Reproductive History Menstrual Age of Menarche: 10 Review of Systems Const Denies chills and Denies fever(s) Card Reports no additional complaints and Denies syncope Resp Denies cough GI Denies abdominal pain and Denies heartburn Reports as per HPI and Denies change in libido Neuro Denies syncope Psych Denies change in libido Endo Denies change in libido Physical Exam Const General: cooperative, healthy appearing, comfortable and no acute distress Orientation/consciousness: patient oriented x3 HEENT Face and sinus: Yes normal facial exam Mouth: moist mucous membranes Neck Neck: Yes normal visual inspection, Yes full ROM and Yes trachea midline Chest Chest palpation & inspection: normal inspection of the chest Resp Effort & Inspection: normal respiratory effort, able to speak in complete sentences and no respiratory distress GI Inspection: Yes normal to inspection Back/Spine/Pelvis Cervical Spine: normal cervical lordosis Thoracic/Lumbar Spine: thoracic and lumbar spine normal to inspection Skin General skin exam: no rashes or lesions noted Neuro General: patient oriented x3, gait normal, tone normal and moves all extremities Extrem General: Yes normal to inspection and Yes capillary refill normal Office Procedures Post Void Residual Post Residual Void Post Void Residual (PVR): 0 08854-Nyoc Void Residual by ultrasound Results AMB Urinalysis, Automated UA Leukoctes 0 Figueroa/uL Last Edit by Kristy Blum Jessie on 06/24/24 15:32 UA Nitrite Negative Last Edit by Kristy Blum A on 06/24/24 15:32 UA Urobilinogen 0.2 mg/dL Last Edit by Kristy Blum A on 06/24/24 15:3 2 UA Protein 15 mg/dL Last Edit by Kristy Blum A on 06/24/24 15:32 UA pH 6.0 Last Edit by Kristy Blum A on 06/24/24 15:32 UA Blood 0 Farrukh/uL Last Edit by Kristy Blum [facility] on 06/24/24 15:32 UA Specific [place]stein 1.015 Last Edit by Kristy Blum A on 06/24/24 15: 32 UA Ketone Negative Last Edit by Kristy Blum Jessie on 06/24/24 15:32 UA Bilirubin 0 mg/dL Last Edit by Kristy Blum A on 06/24/24 15:32 UA Glucose 0 mg/dL Last Edit by Kristy Blum [facility] on 06/24/24 15:32 Results Reviewed Results Reviewed: Laboratory Last Values Urine pH (Auto) 6.0 06/24/24 15:19 Specific [place] (Auto) 1.015 06/24/24 15:19 Urine Protein (Auto) 15 mg/dL 06/24/24 15:19 Glucose (UA)(Auto) 0 mg/dL 06/24/24 15:19 Urine Ketones (Auto) Negative 06/24/24 15:19 Urine Blood (Auto) 0 Farrukh/uL 06/24/24 15:19 Urine Nitrite (Auto) Negative 06/24/24 15:19 Urine Bilirubin (Auto) 0 mg/dL 06/24/24 15:19 Urine Urobilinogen (Auto) 0.2 mg/dL 06/24/24 15:19 Leukocyte Esterase (Auto) 0 Figueroa/uL 06/24/24 15:19 Assessment & Plan Assessment & Plan (1) Recurrent UTI: Code(s): N39.0 - Urinary tract infection, site not specified Category: Medical Plan Plan office cystoscopy Orders: Orders AMB Post Void Residual by ultrasound 06/24/24 N39.0 - Urinary tract infection, site not specified AMB Urinalysis Automated 06/24/24 N39.0 - Urinary tract infection, site not specified, Z13.9 - Encounter for screening, unspecified Medications: New estradiol 0.01%(0.1mg/gram) vaginally 3 times a week; pea sized amount to urethra 3 times a week 30 days 42.5 grams 0RF N39.0 - Urinary tract infection, site not specified Patient Instructions: Imaging studies, laboratory and physical exam results were discussed and reviewed in detail. No major barriers to patient understanding were identified. An opportunity to ask questions regarding the treatment plan was provided. All questions were answered. The patient expressed understanding and agreement with the above treatment plan. The patient is aware they should contact our office by phone for worsening of their current condition or the appearance of new urologic symptoms. Compliance is encouraged with any medications and followup testing that is ordered. It is a privilege to participate in the urologic care of your patient. If you have any questions or concerns regarding treatment for the above conditions, or other urologic issues, please do not hesitate to contact me. The office telephone contact is [phone]. This note is constructed using voice recognition software. While every effort has been made to ensure accuracy surety bond agent errors may have been included. Yours sincerely, Dr Barrett Martin MD, [facility] - Urology Providers of Expert, Compassionate Care for the Genitourinary System Coding Level of Care Code New Pt Level 4 (39386) Diagnoses Recurrent UTI N39.0 CPT Codes Post Residual Void - PVR CPT Code: 90883-Fusx Void Residual by ultrasound ([id number])
== END 2024-06-24 16:06 | disposition home or self-care (01) ==
PROVIDERS: PCP Internal Medicine; Visit Provider Urology
DX: N39.0 Urinary tract infection, site not specified (principal)
CPT/HCPCS: 99204

== ENCOUNTER → 2024-06-24 15:02 | Outpatient (BNVA) | payer BC, SELFPAY | PROVIDERS: PCP Internal Medicine; Visit Provider Urology | DX: N39.0 Urinary tract infection, site not specified (principal) | CPT/HCPCS: 51798; 81003 ==

== ENCOUNTER 2024-07-08 11:27 | Outpatient (AMB) | payer BC, SELFPAY ==
[2024-07-08 11:29] VITALS: BP 128/72; BMI 27.0
--- NOTE | 2024-07-08 11:29 | A.OFFVIS_ITS ---
Vital Signs 07/08/24 11:29 Height 5 ft 2 in Weight 147 lb 11.355 oz BMI 27.0 BP 128/72 Intake Visit Reasons: MRI results/DO NOT RS Basket Machine Operator Required: Yes Basket Machine Operator Language: Public Relations Senior Associate Services: Basket Machine Operator Present (in person) Basket Machine Operator Name: Jaky ARORA Information Interpreted: non-clinical & clinical Accompanied by: Daughter Allergies No Known Allergies Allergy (Verified 07/08/24 11:37) Post menopausal: Yes HPI Comments Details: Presenting for pelvic MRI follow-up showed the following: Uterus is anteroverted measuring 7.4 x 3.4 x 4.0 cm in size. Endometrial cavity is unremarkable. Junctional zone is focally prominent but within upper limits of normal for size. In the posterior body of uterus there is a 2.7 cm T2 dark intramural fibroids seen. Additional smaller fibroids are noted including a 1.2 cm left fundal intramural fibroid and a anterior mid body 0.9 cm intramural fibroid. There are additional tiny T2 dark probable subcentimeter fibroids as well. I do not appreciate any suspicious lesion otherwise. The probable fibroids all demonstrate similar signal characteristics and mild enhancement. No suspicious adnexal mass. The ovaries are difficult to separate from adjacent structures but are grossly unremarkable where visualized. No significant free fluid. Bladder is decompressed with an incidental 1 cm fluid filled ureterocele at the left ureterovesicular junction. 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 Reproductive History Menstrual Age of Menarche: 10 Review of Systems Const All systems reviewed & are unremarkable except as noted in HPI and below Reports as per HPI and Reports no additional complaints GI Reports no additional complaints Reports no additional complaints Physical Exam Vital Signs: Last Vital Signs BP 128/72 07/08/24 11:29 BMI result Body Mass Index 27.0 Assessment & Plan Assessment & Plan (1) Uterine myoma: Code(s): D25.9 - Leiomyoma of uterus, unspecified Category: Medical Plan: Explained to the patient the results of the myoma MRI, left a message to the MRI radiology department to add an addendum on the report explaining further if leiomyomas are suspicious or not since the report is not clear. Instructions given the patient to schedule 1 week follow-up appointment will check the addendum and treat accordingly. Questions answered, the patient verbalized understanding Coding Level of Care Code Est Pt Level 3 (45697) Diagnoses Uterine myoma D25.9
== END 2024-07-08 12:10 | disposition home or self-care (01) ==
LOC: HO.HWS 11:27
PROVIDERS: PCP Internal Medicine; Visit Provider Obstetrics & Gynecology
DX: D25.9 Leiomyoma of uterus, unspecified (principal)
CPT/HCPCS: 99213

== ENCOUNTER → 2024-07-08 11:27 | Outpatient (BNVA) | payer BC, SELFPAY | PROVIDERS: PCP Internal Medicine; Visit Provider Obstetrics & Gynecology ==

== ENCOUNTER 2024-07-15 15:43 | Outpatient (AMB) | payer BC, SELFPAY ==
--- NOTE | 2024-07-15 15:44 | MHC.OFFVIS ---
Intake Visit Reasons: 1 week follow up 4pm call only [employer] Metals Hand Engraver Required: Yes [employer] Hand Engraver Language: [employer]: [employer] Hand Engraver Present (in person) [employer] Hand Engraver Name: Jaky ARORA Information Interpreted: non-clinical & clinical Allergies No Known Allergies Allergy (Verified 07/15/24 15:45) HPI Comments Details: The patient is scheduled tele health visit for follow-up regarding pelvic MRI. Doing well with no complaints no pelvic pressure and /or pelvic pain or vaginal bleeding. Pelvic MRI showed the following: Uterus is anteroverted measuring 7.4 x 3.4 x 4.0 cm in size. Endometrial cavity is unremarkable. Junctional zone is focally prominent but within upper limits of normal for size. In the posterior body of uterus there is a 2.7 cm T2 dark intramural fibroids seen. Additional smaller fibroids are noted including a 1.2 cm left fundal intramural fibroid and a anterior mid body 0.9 cm intramural fibroid. There are additional tiny T2 dark probable subcentimeter fibroids as well. I do not appreciate any suspicious lesion otherwise. The probable fibroids all demonstrate similar signal characteristics and mild enhancement. No suspicious adnexal mass. The ovaries are difficult to separate from adjacent structures but are grossly unremarkable where visualized. No significant free fluid. Bladder is decompressed with an incidental 1 cm fluid filled ureterocele at the left ureterovesicular junction. Symmetric muscle and bony signal ADDENDUM Addendum: Further clarification was requested. There are multiple T2 dark lesions seen within the uterus most consistent with uterine fibroids as described in the body of the report. The multiplicity and MRI appearance are all consistent with multiple uterine fibroids. These demonstrate mild postcontrast enhancement as would be expected for multiple uterine fibroids. I do not appreciate any more suspicious or concerning lesions otherwise on this exam. 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 Female Reproductive History Menstrual Age of Menarche: 10 Review of Systems Const All systems reviewed & are unremarkable except as noted in HPI and below Reports as per HPI and Reports no additional complaints GI Reports no additional complaints Reports no additional complaints Telehealth Telehealth Telehealth Platform: Telephone Location of provider rendering services: practice address Location of patient: address on file Patient Identification confirmed using: Name, : Yes Telehealth method: voice only Patient verbally consented to treatment: Yes Patient verbally consented to billing insurance company: Yes Patient informed of any privacy concerns related to visit: Yes Assessment & Plan Assessment & Plan (1) Uterine myoma: Code(s): D25.9 - Leiomyoma of uterus, unspecified Category: Medical Plan: Discussed with the patient the findings on pelvic ultrasound and pelvic MRI & the risk of myosarcoma; discussed with the patient the options of treatment including expectant management versus hysterectomy; the pros and cons, risks benefits of each approach were discussed with the patient including the fact that in cases of myosarcoma, surgical treatment can lead to early diagnosis and positively affects the prognosis; after further discussion, the patient decided to proceed with expectant management. Will repeat pelvic ultrasound periodically. Instructions given to patient to call in case any of the following occurs: pressure symptoms, abnormal uterine bleeding, pelvic pain; and to schedule a year pelvic ultrasound and a follow-up appointment . All questions answered, the patient verbalized understanding and agreed with the plan . (2) Ureterocele: Code(s): N28.89 - Other specified disorders of kidney and ureter Category: Medical Plan: Discussed with the patient the finding on MRI showing a left 1 cm fluid filled ureterocele at the left ureterovesicular junction, the patient has an appointment with urology in a month, will discuss the finding and options of treatment if any I spent a total of 20 minutes reviewing the chart, talking to the patient via phone and documenting in the medical record. Orders: Orders US pelvic and transvaginal Today D25.9 - Leiomyoma of uterus, unspecified Coding Level of Care Code Tele Est Pt Level 1 (46586) Diagnoses Uterine myoma D25.9 Ureterocele N28.89
== END 2024-07-15 16:31 | disposition home or self-care (01) ==
LOC: HO.HWS 15:43
PROVIDERS: PCP Internal Medicine; Visit Provider Obstetrics & Gynecology
DX: D25.9 Leiomyoma of uterus, unspecified (principal); N28.89 Other specified disorders of kidney and ureter
CPT/HCPCS: 99211

== ENCOUNTER → 2024-07-15 15:43 | Outpatient (BNVA) | payer BC, SELFPAY | PROVIDERS: PCP Internal Medicine; Visit Provider Obstetrics & Gynecology ==

== ENCOUNTER 2024-12-08 14:49 | Outpatient (AMB) | payer BC, SELFPAY ==
--- NOTE | 2024-12-08 15:19 | MHC.OFFVIS ---
Intake Visit Reasons: Cysto(Recurrent UTI) Intake Note: Patient is present for Cystoscopy Urology Medication:NONE Antibiotic Allergy:NONE Blood Thinner:NONE Lot:[id number] Exp:10/05/27 Insurance Agency Manager Required: No Allergies No Known Allergies Allergy (Verified 12/08/24 15:21) HPI Comments Details: Laurel is a pleasant [place]ian-speaking female. She is a patient of Dr. Romero. She seen for the following urologic conditions - recurrent urinary tract infection Translation provided by daughter who is comfortable in this role. Recurrent UTI Three documented urinary tract infections over past 6 months E coli Bactrim and ampicillin resistant Discussed hydration strategies Discussed bowel protocol for constipation. Has IBS with alternating loose and firm bowel movements. 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 Female Reproductive History Menstrual Age of Menarche: 10 Results AMB Urinalysis, Automated UA Leukoctes 0 Figueroa/uL Last Edit by KUMAR Guevara on 12/08/24 15:36 UA Nitrite Negative Last Edit by KUMAR Guevara on 12/08/24 15:36 UA Urobilinogen 0.2 mg/dL Last Edit by KUMAR Guevara on 12/08/24 15:36 UA Protein 15 mg/dL Last Edit by KUMAR Guevara on 12/08/24 15:36 UA pH 5.5 Last Edit by KUMAR Guevara on 12/08/24 15:36 UA Blood 0 Farrukh/uL Last Edit by KUMAR Guevara on 12/08/24 15:36 UA Specific [place] 1.030 Last Edit by KUMAR Guevara on 12/08/24 15:36 UA Ketone Negative Last Edit by KUMAR Guevara on 12/08/24 15:36 UA Bilirubin 0 mg/dL Last Edit by KUMAR Guevara on 12/08/24 15:36 UA Glucose 0 mg/dL Last Edit by KUMAR Guevara on 12/08/24 15:36 Results Reviewed Results Reviewed: Laboratory Last Values Urine pH (Auto) 5.5 12/08/24 15:35 Specific [place] (Auto) 1.030 12/08/24 15:35 Urine Protein (Auto) 15 mg/dL 12/08/24 15:35 Glucose (UA)(Auto) 0 mg/dL 12/08/24 15:35 Urine Ketones (Auto) Negative 12/08/24 15:35 Urine Blood (Auto) 0 Farrukh/uL 12/08/24 15:35 Urine Nitrite (Auto) Negative 12/08/24 15:35 Urine Bilirubin (Auto) 0 mg/dL 12/08/24 15:35 Urine Urobilinogen (Auto) 0.2 mg/dL 12/08/24 15:35 Leukocyte Esterase (Auto) 0 Figueroa/uL 12/08/24 15:35 Assessment & Plan Assessment & Plan Orders: Orders AMB Urinalysis Automated Today Z13.9 - Encounter for screening, unspecified Coding
== END 2024-12-08 16:42 | disposition home or self-care (01) ==
PROVIDERS: PCP Internal Medicine; Visit Provider Urology
DX: Z13.9 Encounter for screening, unspecified (principal)

== ENCOUNTER → 2024-12-08 14:49 | Outpatient (BNVA) | payer BC, SELFPAY | PROVIDERS: PCP Internal Medicine; Visit Provider Urology | DX: N39.0 Urinary tract infection, site not specified (principal) | CPT/HCPCS: 81003 ==

== ENCOUNTER 2025-03-01 11:10 | Outpatient (REF) | payer BC, SELFPAY ==
--- OUTSIDE RECORDS SUMMARY | 2025-03-01 12:47 | XMS_ITS | Encounter Summary ---
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) Social History Tobacco Use Types Packs/Day Years Used Date Smoking Tobacco: Never Assessed Depression Answer Date Recorded Patient Health Questionnaire-9 Score 3 09/10/2023 Depression Answer Date Recorded Patient Health Questionnaire-2 Score 0 09/10/2023 Comments Unknown Sex and Gender Information Value Date Recorded Sex Assigned at Female 10/01/2022 10:21 AM EDT Legal Sex Female 10:21 AM EDT Gender Identity Female 10/01/2022 10:21 AM EDT Sexual Orientation Straight 10/01/2022 10 :21 AM EDT documented as of this encounter Plan of Treatment Not on file documented as of this encounter Visit Diagnoses Diagnosis 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
--- OUTSIDE RECORDS SUMMARY | 2025-03-01 12:47 | XMS_ITS | Encounter Summary ---
Author Organization [facility] Address [address] [place] [address] Care Team Providers Care Surgical Rn Name Role Phone Mark Torres MD Primary Care Provide r Geovanni Gallardo Unavailable Unavailable Mark Torres MD Primary Care Provide r Reason for Visit * Reason Comments Med Refill Encounter Details Date Type Department Care Team (Late st Contact Info) Description 10/28/2023 Refill [facility] MEDICINE [address] [place] [address] Geovanni Gallardo FNP Severe recurrent major depressive [...] documented as of this encounter Care Teams Surgical Rn Relationship Specialty Start Date End Date Mark Torres MD [address] [place] [address] PCP - General Internal Medicine 10/11/14 02/03/24 Mark Torres MD [address] [place] [address] PCP - General Internal Medicine 02/04/24 Geovanni Gallardo FNP [address] [place] [address] Nurse Practitioner Family Medicine 10/15/23 documented as of this encounter
--- OUTSIDE RECORDS SUMMARY | 2025-03-01 12:47 | XMS_ITS | Clinical Summary ---
Author Organization [employer] Address [address] 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 30 tablet 1 12/29/19 25 Active zolpidem (Ambien) 5 MG tabletIndicati ons:Severe recurrent major depressive disorder with psychotic features (CMS/HCC) Take 1 tablet (5 mg) by mouth if needed at bedtime for sleep. 30 tablet 02/03/20 25 025 Active ALPRAZolam (Xanax) 0.5 MG tabletIndicati ons:Severe recurrent major depressive disorder with psychotic features (CMS/HCC) Take 0.5 tablets (0.25 mg) by mouth if needed in the morning and at bedtime for anxiety. 10 tablet 02/03/20 25 Active QUEtiapine (SEROquel) 25 MG tabletIndicati ons:Severe recurrent major depressive disorder with psychotic features (CMS/HCC) Take 1 tablet (25 mg) by mouth at bedtime. 30 tablet 1 02/25/20 25 025 Active ALPRAZolam (Xanax) 0.5 MG tabletIndicati ons:Severe recurrent major depressive disorder with psychotic features (CMS/HCC) Take 0.5 tablets (0.25 mg) by mouth if needed in the morning and at bedtime for anxiety. 10 tablet 12/29/19 025 Discontinued(Re order (will not trigger notification to Pharmacy)) QUEtiapine (SEROquel) 25 MG tabletIndicati ons:Severe recurrent major depressive disorder with psychotic features (CMS/HCC) Take 1 tablet (25 mg) by mouth at bedtime. 30 tablet 1 12/29/19 25 025 Discontinued(Re order (will not trigger notification to Pharmacy)) zolpidem (Ambien) 5 MG tabletIndicati ons:Severe recurrent major depressive disorder with psychotic features (CMS/HCC) Take 1 tablet (5 mg) by mouth if needed at bedtime for sleep. 30 tablet 12/29/19 025 Discontinued(Re order (will not trigger notification to Pharmacy)) Active Problems Problem Noted Date Diagnosed Date Obesity (BMI 30-39.9) 02/18/2025 Assessment & Plan (02/18/2025 3:39 PM EDT): Patient has been counseled and educated about diet and exercise. Personal goal of weight loss discussedPatient has comorbidity of: Depression Concern about STI in female without diagnosis Assessment & Plan (10/20/2024 3:11 PM EST): Previous concerns U/A normal, Pelvic exam benign HIV, Hep C, RPR, as requested by patient were negative Assessment & Plan (06/18/2024 1:58 PM EDT): U/A normal, Pelvic exam benign Viral culture obtained from perianal region since pt c/o discomfort Sent for HIV, Hep C, RPR, GC and Chlamydia as requested by patient Preventative health care 01/28/2024 Assessment & Plan (02/18/2025 3:42 PM EDT): Mammogram: 03/31/2024 Normal Pap Smear: NL 08/29/2022 follows with [facility] Colonoscopy: 07/30/2022 showed tubular adenomas x 4 Assessment & Plan (01/28/2024 3:31 PM EST): Mammogram: 10/30/2022 Normal Pap Smear: NL 08/29/2022 follows with [facility] midw[facility] Colonoscopy: 07/30/2022 showed tubular adenomas x 4 Vaccines: Flu shot: At work. 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 Moderately severe right median neuropathy across carpal tunnel. 2. [id number] right ulnar neuropathy across cubital tunnel. Plan: Wrist splinting at night Seen by Ortho , received a steroid injection and the recommendation was for her to have surgery and stay off work 4 weeks post op Intramural uterine fibroid 01/28/2024 Assessment & Plan (10/20/2024 3:10 PM EST): Pt had a pelvic U/S 01/17/2024 that showed: Persistent uterine leiomyomatosis. Pt was seen by tara Mckenzie and she is now under the care of corn sheller Dr Husain who ordered a pelvic MRI 06/08/2024 That showed: IMPRESSION: 1. There are multiple small T2 dark intramural fibroids as described above. I do not appreciate any suspicious lesions otherwise. 2. Incidental 1 cm fluid filled ureterocele at the left ureterovesicular junction. last seen by him 07/15/2024 Assessment & Plan (06/18/2024 12:37 PM EDT): Pt had a pelvic U/S 01/17/2024 that showed: Persistent uterine leiomyomatosis. Pt was seen by tara Mckenzie and she is now under the care of corn sheller Dr Husain who ordered a pelvic MRI last seen by him 04/29/2024 Assessment & Plan (01/28/2024 3:44 PM EST): Pt had a pelvic U/S 01/17/2024 that showed: Persistent uterine leiomyomatosis. Pt was seen by tara Mckenzie 01/15/2024 who will see her pt has a follow up with her on Saturday Left lower quadrant abdominal pain 01/28/2024 Assessment & Plan (10/20/2024 3:15 PM EST): Resolved Pt with previous c/o LLQ abdominal pain. On our previous exam there was tenderness to palpation over the LLQ CT of Abdomen done in the ER 02/20/2024 showed: No cause for the patient's abdominal pain. Incidental note made of a 3 mm left lower lobe lung nodule, uterine fibroids. Today patient is feeling good. Assessment & Plan (06/18/2024 1:57 PM EDT): Pt with previous c/o LLQ abdominal pain. On our previous exam there was tenderness to palpation over the LLQ CT of Abdomen done in the ER 02/20/2024 showed: No cause for the patient's abdominal pain. Incidental note made of a 3 mm left lower lobe lung nodule, uterine fibroids. Today patient is c/o passing gas through her vagina ever since her IUD was removed. Not related to sexual intercourse. Abdominal exam benign . Etiology ? Fistula ? Plan: Gastroenterology referral . Of note she also tells me that she has been referred to Urologist. Assessment & Plan (01/28/2024 3:48 PM EST): Pt with c/o LLQ abdominal pain x 1 month. On exam there is tenderness to palpation over the LLQ Plan: CBC, CRP, CT of Abdomen and Pelvis to rule out diverticulitis Pelvic pain 01/28/2024 Assessment & Plan (10/20/2024 3:16 PM EST): Resolved Pt with previous c/o pelvic pain x 1 month. Seen by latesha Corrales who ordered a pelvis US that showed fibroids. Under the care of Dr Husain, last seen 04/29/2024 ordered a Pelvic MRI to further evaluate her fibroids he also noted an endometrial biopsy showed inactive endometrium CT of Abdomen and Pelvis done in the ER 02/20/2024 showed: A cause for the patient's abdominal pain has not been found. Incidental note made of a 3 mm left lower lobe lung nodule, uterine fibroids. Pelvic MRI showed fibroids. Assessment & Plan (06/18/2024 12:36 PM EDT): Pt with c/o pelvic pain x 1 month. Seen by latesha Corrales who ordered a pelvis US that showed fibroids. Under the care of Dr Husain, last seen 04/29/2024 ordered a Pelvic MRI to further evaluate her fibroids he also noted an endometrial biopsy showed inactive endometrium CT of Abdomen and Pelvis done in the ER 02/20/2024 showed: A cause for the patient's abdominal pain has not been found. Incidental note made of a 3 mm left lower lobe lung nodule, uterine fibroids. Assessment & Plan (01/28/2024 3:50 PM EST): Pt with c/o pelvic pain x 1 month. Seen by latesha Corrales who ordered a pelvis US that showed fibroids. Pt has a follow up with her. She denies any vaginal discharge, no dysuria at the moment. Severe recurrent major depre ssive disorder with psychotic features 01/28/2023 Assessment & Plan (02/18/2025 3:34 PM EDT): Under the care of our sculpture conservator Doing well Plan: Med management as per viscose cellar worker Assessment & Plan (10/20/2024 3:19 PM EST): Used to be followed by Geovanni Gallardo, she has been referred to another psychiatric prescribed given that Geovanni will be retiring soon. But tells me she has not been seen yet. Assessment & Plan (04/16/2024 5:05 PM EDT): In remission, although mild, intermittent anxiety persists. She has history of severe depression with suicidality, hospitalizations, also psychotic features. She understands that it is essential to continue her psychiatric medications uninterrupted, and will most likely need these indefinitely to prevent risk of relapse Continue medications as usual: Sertraline 50 mg once daily, Quetiapine 50 mg at bedtime, Zolpidem 5 mg at bedtime prn, and Alprazolam 0.5 mg prn anxiety (#10 per month). She will F/U for counseling as usual, and may be referred to prescriber there as well. Since this provider will be retiring, she is referred back to her PCP for further medication management, and could be referred to new [facility] psychiatric prescriber in the future if needed. For any issues or concerns, call [facility]. All her questions were answered. I have wished her well. She agrees with the plan. Assessment & Plan (02/10/2024 5:06 PM EDT): In remission, although anxiety persists. She has history of severe depression with suicidality, hospitalizations, also psychotic features. She is correct that it is essential to continue her psychiatric medications uninterrupted. Continue medications as usual: Sertraline 50 mg once daily, Quetiapine 50 mg at bedtime, Zolpidem 5 mg at bedtime prn, and Alprazolam 0.5 mg prn anxiety (#10 per month). She has been referred for counseling, and plans to go with her daughter for in-person intake to [facility] in [place]. I have reassured the patient that when I retire we will ensure that she has coverage for her medications: will have prescriptions with many refills, and a plan for ongoing provider management. Meanwhile, F/U with me in 2 months. She agrees with the plan. Assessment & Plan (01/28/2024 3:26 PM EST): Being followed by Geovanni Gallardo, she has been referred to another psychiatric prescribed given that Geovanni will be retiring soon. Assessment & Plan (12/12/2023 4:58 PM EST): In remission, although anxiety persists. She has history of severe depression with suicidality, hospitalizations, also psychotic features. ?? She c/o feeling very tired and with joint pain, and will F/U with her PCP. Continue medications as usual: Sertraline 50 mg once daily, Quetiapine 50 mg at bedtime, Zolpidem 5 mg at bedtime prn, and Alprazolam 0.5 mg prn anxiety (#10 per month). She will be referred for counseling. Today 12/12/2023 provider informed pt that I would be retiring, but we would plan for smooth transition of care. Meanwhile F/U with me in 2 months. She agrees with the plan. ?? Assessment & Plan (09/10/2023 5:05 PM EDT): In remission. She has history of severe depression with suicidality, hospitalizations, also psychotic features. ?? She no longer attributes nausea to Sertraline and would like to resume that medication. Taking Magnesium Chloride twice daily for sleep and chronic pain. Provider explained that this is a mineral, not really a plant, but is fine to continue taking. At her suggestion will decrease to Zolpidem 5 mg at bedtime prn, and decrease quantity of Alprazolam 0.5 mg to #10 per month. Continue Quetiapine 50 mg at bedtime. F/U with me in 3 months. She agrees with the plan. ?? Assessment & Plan (06/10/2023 5:07 PM EDT): In remission. She has history of severe depression with suicidality, hospitalizations, also psychotic features. Recently developed S/E of nausea associated with Sertraline. Will stop the Sertraline 50 mg daily. Will instead start Escitalopram 5 mg once daily. Continue other medications as usual: Quetiapine 50 mg at bedtime, Alprazolam 0.5 mg 1/4 to 1/2 tab BID prn, Zolpidem 10 mg 1/2 to 1 tab at bedtime prn. F/U with me in 3 months. She agrees with the plan. Assessment & Plan (03/26/2023 5:30 PM EDT): In remission. She has history of severe depression with suicidality, hospitalizations, also psychotic features. Continue current medications as usual. She will keep trying to reconnect with therapist. F/U with me in 2 months. She agrees with the plan. Assessment & Plan (01/28/2023 5:09 PM EST): In partial remission. She has history of severe depression with suicidality, hospitalizations, also psychotic features. Continue with therapist and current medications as usual. F/U with me in 2 months. She agrees with the plan. Galactorrhea not associated with childbirth 01/31 Resolved Problems Problem Noted Date Diagnosed Date Resolved Date Essential hypertension 01/27/202406/18 Assessment & Plan (01/28/2024 3:25 PM EST): Patient had a Hx of Hypertension, but her BP has been normal for a while now off medications she stopped taking the Hctz 12.5 mg po daily due to frequent micturition Most recent electrolytes, Bun and Creatinine done on: 09/01/2021 were within normal limits. Today will order a repeat BMP plan: If BP normal next visit will remove her diagnosis patient advised to adhere to a low sodium diet, encouraged about medication compliance, counseled about weight loss. Encounters * This document contains information received from the source organization and may not represent a complete record from that organization. 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) (Primary Dx); Preventative health care; Obesity (BMI 30-39.9); Dietary counseling; Exercise counseling; Encounter for immunization 02/18/2025 Abstract [address] [place] [address] Mark Torres MD 02/18/2025 Travel 02/10/[address] [place] [address] Mark Torres MD Chart Prep 02/10/2025 Patient Outreach [address] [facility] [place] [address] Mark Torres MD Pre-visit Planning (SDOH Screening negative and Tobacco screening negative) from Last 3 Months Immunizations Name Administration Dates Next Due Hep A, Adult 04/10/2013,10/05/2010 Influenza, IIV3, injectable 09/16/2023,,09/21/2011 Influenza, Split (incl. rajni fied surface antigen) 09/11/2013 Influenza, seasonal, injecta ble, preservative free 10/20/2024 Pfizer Covid-19 Vaccine 12+ 03/30/2021 Pneumococcal Conjugate PCV 20 02/18/2025 Pneumococcal Polysaccharide PPSV23 06/22/2010 TD (adult), 2 Lf tetanus tox oid, preservative free, adsorbed 10/20/2024,06/23/2010 Tdap 07/23/2012 Zoster, Recombinant 09/28/2022,07/26/2022 Social History Tobacco Use Types Packs/Day Years Used Date Smoking Tobacco: Never Passive Smoke Exposure: Never Smokeless Tobacco: Never Tobacco Cessation:Counseling Given: Not Answered Alcohol Use Standard Drinks/Week Comments Never 0 (1 standard drink = 0.6 oz pur e alcohol) Depression Answer Date Recorded Patient Health Questionnaire-9 Score 0 02/18/2025 Patient Health Questionnaire-9 Score 0 02/18/2025 Last PHQ-9: Questionnaire Data Not on file 0 02/18/2025 Housing Stability Answer Date Recorded What is your housing situation today? I have janinefátima melendez 02/10/[address] you li ve. Do you have problems with any of the following? None of the above 02/10/2025 Food Insecurity Answer Date Recorded Within the past 12 months, y ou worried that your food would run out before you got money to buy more: Never True 02/10/2025 Within the past 12 months,th e food you bought just didn't last and you didn't have enough money to get more: Never True 11/2025 Transportation Answer Date Recorded In the past 12 months, has l ack of transportation kept you from medical appts, meetings, work or from getting things needed for daily living? No 02/10/2025 Utilities Answer Date Recorded In the past 12 months, has t he [employer], gas, oil or water [employer] threatened to shut off services in your home? No 02/10/2025 Depression Answer Date Recorded Patient Health Questionnaire-2 Score 0 02/18/2025 Internet Access Answer Date Recorded Internet Access Q1 Yes 10/09/2024 Internet Access Q2 Not on file 10/09/2024 Comments No Sex and Gender Information Value Date Recorded Sex Assigned at Female 10/01/2022 10:21 AM EDT Legal Sex Female 10:21 AM EDT Gender Identity Female 10/01/2022 10:21 AM EDT Sexual Orientation Straight 10/01/2022 10 :21 AM EDT Last Filed Vital Signs Vital Sign Reading Time Taken Comments Blood Pressure 139/83 02/18/2025 3:20 PM EDT Pulse 68 02/18/2025 3:20 PM EDT Temperature 36.3 ??C (97.3 ??F) 02/18/2025 3:20 PM ED T Respiratory Rate 20 02/18/2025 3:20 PM EDT Oxygen Saturation 100% 02/18/2025 3:20 PM EDT Inhaled Oxygen Concentration - - Weight 67.9 kg (149 lb 12.8 oz) 02/18/2025 3:20 PM EDT Height 149.9 cm (4' 11 ) 02/18/2025 3:20 PM EDT Body Mass Index 30.26 02/18/2025 3:20 PM EDT Plan of Treatment Health Maintenance Due Date Last Done Comments CT Colonography 1970 FIT DNA/Cologuard 1970 FIT 1970 FOBT 1970 Sigmoidoscopy 1970 Hepatitis B Vaccines (1 of 3 - 19+ 3-dose series) 1987 COVID-19 Vaccine ( season) 2024 03/07/2022, 04/20/2021, 03/30/2021 Mammogram 03/31/2025 03/31/2024, 10/03, 10/19/2021, Additional history exists Alcohol/Substance Use Screening 10/20/2025 10/20/2024 SDOH Screening 02/10/2026 02/10/2025 Depression Screening 02/18/2026 02/18/2025, 03/20/20 25 Tobacco Screening 02/18/2026 02/18/2025 Pap Smear 01/15/2027 01/15/2024, 08/29/2022 Colonoscopy 07/30/2027 07/30/2022 Colorectal Cancer Screening 07/30/2027 Cervical Cancer Screening 08/29/2027 HPV/Cotest 08/29/2027 08/29/2022 Lipid Panel 01/30/2029 01/31/2024, 09/01/2021 DTaP/Tdap/Td Vaccines (3 - Td or Tdap) 10/20/2034 10/20/2024, 07/23/2012, 06/23/2010 RSV Patients and Patients Aged 60 years or older (1 - 1-dose 75+ series) 2043 Hepatitis A Vaccines Aged Out 04/10/2013, 10/05/20 10 No longer eligible based on patient's age to complete this topic Zoster Vaccines Completed 09/28/2022, 07/26/2022 HIV Screening Completed 06/18/2024 Hepatitis C Screening Completed 06/18/2024 Influenza Vaccine Completed 10/20/2024, , 09/01/2021, Additional history exists Pneumococcal Vaccine: 50+ Years Completed 02/18/2025, 06/22/2010 HIB Vaccines Aged Out No longer eligi ble based on patient's age to complete this topic HPV Vaccines Aged Out No longer eligi ble based on patient's age to complete this topic IPV Vaccines Aged Out No longer eligi ble based on patient's age to complete this topic Meningococcal Vaccine Aged Out No jens milly eligible based on patient's age to complete this topic RSV under 20 months Aged Out No longe r eligible based on patient's age to complete this topic Rotavirus Vaccines Aged Out No longer eligible based on patient's age to complete this topic Procedures Procedure Name Priority Date/Time Associated Diagnosis Comments HEPATITIS C AB W/REFL TO HCV RNA, QN, PCR Routine 06/18/2024 3:43 PM EDT Pelvic pain HIV 1/2 ANTIGEN/ANTIBODY, FOURTH GENERATION W/RFL Routine 06/18/2024 3:43 PM EDT Left lower quadrant abdominal pain HM MAMMOGRAPHY Routine 03/31/2024 LIPID PANEL WITH REFLEX TO DIRECT LDL Routine 01/31/2024 8:56 AM EST Essential hypertension PAP SMEAR Routine 01/15/2024 12:00 AM EST Acute cystitis without hematuria THINPREP IMAGING PAP AND HPV MRNA E6/E7 WITH REFLEX TO HPV 16,18/45 Routine 08/29/2022 4:21 PM EDT HM COLONOSCOPY Routine 07/30/2022 from Last 3 Months or Most Recently Relevant to Health Maintenance Results * Hepatitis C Antibody with Reflex to HCV, RNA, Quantitative, Real-Time PCR (06/18/2024 3:43 PM EDT) Pathologist [facility] Hepatitis C Antibody Nonreactive Nonreactive [facility] Comment:Antibodies to HCV no t detected; does not exclude early acuteHCV infection. Blood Venous blood specimen / Unknown 06/18/2024 3:43 PM EDT 06/18/2024 3:55 PM EDT us Mark Bunn MD LAB BLOOD ORDERABLES Final Result [facility] [address] [place] [phone] * HIV-1/2 Antigen and Antibodies, Fourth Generation, with Reflexes (06/18/2024 3:43 PM EDT) HIV AB/AG Nonreactive Nonreactive [facility] Comment:HIV-1 p24 Ag and/or HIV-1/HIV-2 Ab not detected.A test result that is nonreactive does not exclude thepossibility of exposure to or infection with HIV-1 and/orHIV-2. Nonreactive results in this assay for individualswith prior exposure to HIV-1 and/or HIV-2 may be due toantigen and antibody levels that are below the limit ofdetection of this assay.The ScoreBig HIV Ag/Ab Combo assay result andsupplemental assay results should be interpreted inconjunction with the patient's clinical presentation,history and other laboratory results. If the results areinconsistent with clinical evidence, additional testing issuggested to confirm the result. Blood Venous blood specimen / Unknown 06/18/2024 3:43 PM EDT 06/18/2024 3:55 PM EDT Mark Bunn MD LAB BLOOD ORDERABLES Final Result [facility] [address] [place] [phone] * Mammography (03/31/2024) Mammogram Normal Normal, Abnormal, BIRADS 1 , BIRADS 2 Anatomical Region Laterality Modality Other Historical Provider HEALTH MAINTENANCE Final Result * (ABNORMAL) Lipid Panel with Reflex to Direct LDL (01/31/2024 8:56 AM EST) Triglycerides 72 <150 mg/dL [facility] Comment:Desirable Triglyceri de: less than 150 mg/dLBorderline High Triglyceride 150-199 mg/dLHigh Triglyceride: 200-499 mg/dLVery High Triglyceride: greater than or equal to 5OO mg/dL Cholesterol 217(H) <200 mg/dL [facility] Comment:Desirable Cholestero l: less than 200 mg/dLBorderline High Cholesterol: 200-239 mg/dLHigh Cholesterol: greater than 239 mg/dL LDL Cholesterol Calculated 155(H) <100 mg/dL [facility] Comment:Desirable LDL: less than 100 mg/dLNear Optimal/Above Optimal LDL: 110- 129 mg/dLBorderline High LDL: 130-159 mg/dLHigh LDL: 160-189 mg/dLVery High LDL: greater than or equal to 190 mg/dL HDL Cholesterol 48 >40 mg/dL [facility] Comment:Desirable HDL: great er than 40 mg/dL Note: This HDL assay may give artificially low results in patients with liver disease. Blood 01/31/2024 8:56 AM EST 01/31/2024 11:22 AM EST us Mark Bunn MD LAB BLOOD ORDERABLES Final Result [facility] [address] [place] [phone] * Pap Smear (01/15/2024 12:00 AM EST) 01/15/2024 01/16/2024 10: 45 AM EST Narrative [facility] - 02/04/2024 2:32 PM EST ----- ------- Name: Leonid Burnham ? Age/Sex: 53/F ? : 1970 Unit#: [id number] ?? Attend Dr: Tara Mckenzie CNM ?Re01/15/24 ?Status: DEP REF ? Location: HO.LNP ?Disch: ? ----- ------- SPEC : [id number] ? RECD: 01/16/24-1045 ? STATUS: ??SOUT ? REQ NUM: [id number] ? MICHEL: 01/15/24-0000 ? SUBM DR: Tara Mckenzie CNM ? ENTERED: ??01/16/24-1102 ?SP TYPE: Pap Smr ?OTHR DR: Mark Thompson MD ?? ORDERED: ??Pap Smear ? Interpretation ?? Satisfactory for evaluation. ?? Atrophic. ?? Negative for intraepithelial lesion or malignancy. ?HPV mRNA E6/E7: ?NOT DETECTED ? This assay detects E6/E7 viral messenger RNA (mRNA) from 14 high-risk HPV types (16, 18, ?? 31, 33, 35, 39, 45, 51, 52, 56, 58, 59, 66, 68) ?? HPV testing performed by [facility], [place], [place]. ??See reference laboratory ?? portion of the EMR for entire report. ?Clinical Information LMP: No menses, Mirena Previous PAP test: 04/24/2017, WNL ? Material Received ?? ThinPrep-Cervical Copies To: ?? Mark Thompson MD ?? [address] ?? [place] [address] ?? [phone] ?? Tara Mckenzie CNM ?? [address] ?? [place] [address] ?? [phone] ----- ------- Signed (signature on file) MICHAEL Leung (ASCP) 02/04/24 1432 ? ----- ------- ? END OF REPORT ? us Generic External Data Provider LAB CYTOLOGY VALENTÍN SINHA Final Result [facility] [address] [place] [phone] * THINPREP TIS PAP AND HPV mRNA E6/E7 WITH REFLEX TO HPV 16,18/45 (08/29/2022 4:21 PM EDT) Clinical Information: None given CONVERTED LEGACY LABS COMMENT SEE COMMENT [facility]AK [facility] Comment: EXPLANATORY NOTE: ? The Pap is a screening test for cervical cancer. It is ?? not a diagnostic test and is subject to false negative ?? and false positive results. It is most reliable when a ?? satisfactory sample, regularly obtained, is submitted ?? with relevant clinical findings and history, and when ?? the Pap result is evaluated along with historic and ?? current clinical information. ?? COMMENT: SEE COMMENT BARAK [facility] Comment: This case could not be evaluated with computer assisted technology. The slide was manually screened according to routine procedures. Bmw Service Technician: SEE COMMENT [facility] Comment: KF, CT(ASCP) CT screening location: [address] ??[id number] HPV nRNA E6/E7 Not Detected Not Detected [facility] Comment: Methodology: Tube Balancer-Mediated Amplification This assay detects E6/E7 viral messenger RNA (mRNA) from 14 high-risk HPV types (16,18,31,33,35,39,45,51,52,56,58,59,66,68). ? Cervical sources are required for HPV testing. If a vaginal source from a patient who has had a total hysterectomy with removal of cervix was ?? submitted, please contact the testing laboratory for alternative testing options. ?? For additional information, please refer to http://education.[employer]/faq/RKS886i1 (This link if provided for information/ educational purposes only.) Interpretation/Res ult: SEE COMMENT [facility] Comment: Negative for intraepithelial lesion or malignancy. Atrophic pattern; predominantly parabasal cells LMP: PEDRITO [facility] Prev. BX: NONE GIVEN [facility] Prev. 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
--- OUTSIDE RECORDS SUMMARY | 2025-03-01 12:47 | XMS_ITS | Clinical Summary ---
Author Organization [facility] ity Address [address] [place] [address] Care Team Providers Care Professor Of Mechanical Engineering Name Role Phone Unavailable Primary Care Provider Unavailabl e Social History Tobacco Use Types Packs/Day Years Used Date Smoking Tobacco: Never Assessed Comments Unknown Sex and Gender Information Value Date Recorded Sex Assigned at Not on file Legal Sex Female 7:49 PM EST Gender Identity Not on file Sexual Orientation Not on file Plan of Treatment Health Maintenance Due Date Last Done Comments Breast Cancer Screening 1968 DTaP,Tdap,and Td Vaccines (1 - Tdap) 1987 Hepatitis B Vaccines (1 of 3 - 19+ 3-dose series) 1987 Cervical Cancer Screening: P ap Smear 1989 Pneumococcal Vaccine: 50+ Ye ars (1 of 1 - PCV) 2018 Zoster Vaccines (1 of 2) 2018 COVID-19 Vaccine ( - 2023-2 5 season) 2024 Influenza Vaccine (#1) 2024 HIB Vaccines Aged Out No longer eligi ble based on patient's age to complete this topic HPV Vaccines Aged Out No longer eligi ble based on patient's age to complete this topic Hepatitis A Vaccines Aged Out No long er eligible based on patient's age to complete this topic IPV Vaccines Aged Out No longer eligi ble based on patient's age to complete this topic MMR Vaccines Aged Out No longer eligi ble based on patient's age to complete this topic Meningococcal ACWY Vaccine Aged Out N o longer eligible based on patient's age to complete this topic Meningococcal B Vacine Aged Out No lo nger eligible based on patient's age to complete this topic Pneumococcal Vaccine: Pediat rics (0 to 5 Years) and At-Risk Patients (6 to 64 Years) Aged Out No longer eligible b ased on patient's age to complete this topic RSV Immunization Patients Un angle 20 months Aged Out No longer eligible b ased on patient's age to complete this topic Varicella Vaccines Aged Out No longer eligible based on patient's age to complete this topic
--- OUTSIDE RECORDS SUMMARY | 2025-03-01 12:48 | XMS_ITS | Encounter Summary ---
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 I have janine melendez 02/10/[address] you [...] the past 12 months, has t he electric, gas, oil or water company threatened to shut off services in your [...] Assessment Noted Time PHQ-9 Depression Total Score: 0 02/19/20 25 3:21 PM EDT documented as of this encounter Care Teams Umbrella Supervisor Relationship Specialty Start Date End Date Mark Torres MD [address] [place] [id number] PCP - General Internal Medicine 02/04/24 Geovanni Gallardo FNP Nurse Practitioner Family Medicine 10/15/23 documented as of this encounter
--- OUTSIDE RECORDS SUMMARY | 2025-03-01 12:48 | XMS_ITS | Patient Health Record ---
Author Organization [facility] Address [address] [place] [address] Care Team Providers Care Senior Research Analyst Name Role Phone Clint Bunn MD, Mark Primary Care Provide r Unavailable David Austin [phone] Allergies No Known Allergies Reason For Referral No Information Medications Medication SIG (Take, Route, Frequency, Duration) Notes Start Date End Date Status Zolpidem Tartrate 10 MG Oral for 14 Active QUEtiapine Fumarate 200 MG TAKE 1/2 TABL ET BY MOUTH BEFORE BEDTIME Oral for 60 Activ e Lisinopril 10 MG Oral for 30 A ctive ALPRAZolam 0.5 MG Oral for 20 Active Sertraline HCl Activ e Immunizations Vaccine Route Administration Date Status Comme nts Influenza Unknown 09/01/2021 Administered Social History Tobacco Use: Social History Observation Description Date Details (start date - stop date) Never Smoker NA - NA Tobacco Use/Smoking Question Answer Notes Patient is a nonsmoker Alcohol Screen Question Answer Notes Did you have a drink containing alcohol in the p ast year? No Points 0 Interpretation Negative Section Notes: Nonsmoker; no sig alcohol Problems Problem Type SNOMED Code ICD Code Onset Dates Problem Status W/U Status Risk Notes Problem Screening for malignant neoplasm of colon (065372165) Encounter for screening for malignant neoplasm of colon (Z12.11) Active confirmed Problem Pre-procedure evaluation check (027519955) Encounter for other preprocedural examination (Z01.818) Active confirmed Problem Diverticulosis of colon (825337203) Diverticulosis of colon (K57.30) Active confirmed Plan Of Treatment Pending Test Test Name Order Date Pathology 07/30/2022 Future Test Test Name Order Date COLONOSCOPY 06/06/2022 Insurance Providers Payer Name Payer Address Payer Phone Subscriber Number Group Number Insured Name Patient Relationship to Insured Coverage Start Date Coverage End Date [facility] [employer] CLAIMS [address] [place] [address] [id number] LE[address] BURNHAM Self - patient is the insured Medical (General) History Medical History History ICD Code Denies SD,DM,CVA,Lung disease,renal dise ase Hypertension Depression/Anxiety Right carpal tunnel symptoms Surgical History Surgery Date(Month/Year) 1 1997
[2025-03-01 13:15] LABS: Alanine Aminotransferase 20 U/L (0-31); Albumin Level 4.2 g/dL (3.5-5.0); Alkaline Phosphatase 70 U/L (39-117); Anion Gap 11 (12-20); Aspartate Amino Transferase 26 U/L (5-31); Bilirubin Total 0.7 mg/dL (0.0-1.0); Blood Urea Nitrogen 20 mg/dL (9-16); Calcium 8.9 mg/dL (8.4-10.2); Carbon Dioxide 26 mmol/L (22-29); Chloride 109 mmol/L (96-108); Cholesterol 236 mg/dL (<200); Estimated Glomerular Filt Rate > 60; Glucose Random 89 mg/dL (60-115); HDL Cholesterol 50 mg/dL (>40); LDL Cholesterol Calculated 165 mg/dL (<100); Potassium 4.5 mmol/L (3.3-5.1); Sodium 141 mmol/L (135-145); Total Protein 7.2 g/dL (6.5-8.0); Triglycerides 105 mg/dL (<150)
== END 2025-03-01 11:11 | disposition home or self-care (01) ==
LOC: HO.HHCL 11:10
PROVIDERS: Visit Provider Internal Medicine
DX: E66.9 Obesity, unspecified (principal)
CPT/HCPCS: 36415; 80053; 80061

== ENCOUNTER 2025-04-06 16:09 | Outpatient (REF) | payer BC, SELFPAY ==
--- OUTSIDE RECORDS SUMMARY | 2025-04-06 17:02 | XMS_ITS | Clinical Summary ---
Author Organization [facility] ity Address [address] [place] [address] Care Team Providers Care Mid Level Clinician Name Role Phone Unavailable Primary Care Provider [...] - 2023-2 5 season) 2024 Influenza Vaccine (Season Ended) 2025 HIB Vaccines Aged Out No longer eligi [...] age to complete this topic Meningococcal B Vaccine Aged Out No l onger eligible based on patient's age to complete [...]
--- OUTSIDE RECORDS SUMMARY | 2025-04-06 17:02 | XMS_ITS | Patient Health Record ---
Author Organization [facility] Address [address] [place] [address] Care Team Providers Care Assistant Director Of Nursing Name Role Phone Clint Bunn MD, Mark Primary Care Provide r Unavailable David Austin [phone] Allergies No Known Allergies Reason For Referral [...] Problem Screening for malignant neoplasm of colon (731781531) Encounter for screening for malignant neoplasm of colon (Z12.11) Active confirmed Problem Pre-procedure evaluation check (576334194) Encounter for other preprocedural examination (Z01.818) Active confirmed Problem Diverticulosis of colon (493567210) Diverticulosis of colon (K57.30) Active confirmed Plan Of Treatment Pending Test Test Name Order Date Pathology 07/30/2022 Future Test Test Name Order Date COLONOSCOPY 06/06/2022 Insurance Providers Payer Name Payer Address Payer Phone Subscriber Number Group Number Insured Name Patient Relationship to Insured Coverage Start Date Coverage End Date [facility] PROF[employer]AL CLAIMS [address] [place] [address] [id number] LEONID BURNHAM Self - patient is the insured Medical (General) History Medical History History ICD Code Denies DC,DM,CVA,Lung disease,renal dise ase Hypertension Depression/Anxiety Right carpal tunnel symptoms Surgical History Surgery Date(Month/Year) 1 1997
== END 2025-04-06 16:10 | disposition home or self-care (01) ==
LOC: HO.MAMMO 16:09
PROVIDERS: PCP Internal Medicine; Visit Provider Internal Medicine
DX: Z12.31 Encounter for screening mammogram for malignant neoplasm of breast (principal)
CPT/HCPCS: 77063; 77067

== ENCOUNTER → 2025-04-06 16:30 | Outpatient (BNV) | payer BC, SELFPAY | PROVIDERS: PCP Internal Medicine; Visit Provider Internal Medicine | DX: Z12.31 Encounter for screening mammogram for malignant neoplasm of breast (principal) | CPT/HCPCS: 77063; 77067 ==

== ENCOUNTER 2025-05-07 15:49 | Outpatient (REF) | payer BC, SELFPAY ==
--- NOTE | ~2025-05-07 | US_ITS ---
EXAMINATION: US PELVIS CLINICAL INFORMATION: Uterine leiomyoma COMPARISON: April 15, 2024 TECHNIQUE: Ultrasound of the pelvis is performed using both transabdominal and transvaginal transducers along with Doppler. Transvaginal imaging is performed due to inadequate visualization transabdominally. FINDINGS: Uterus: The uterus is anteverted and measures 5.6 x 3.2 x 4.2 cm cm. The double wall endometrial thickness is 5 mm. The orientation of the uterus, this examination is suboptimal both transabdominal and transvaginal. Hypoechoic region in the posterior myometrium of the body of the uterus measuring 13 x 15 mm, previously 15 mm. There is a second area of heterogeneity in the lower uterine region measuring 2.1 x 1.8 x 2.1 cm. Adnexa: There is normal color flow to the adnexa. There is no right ovarian torsion. There is no pelvic ascites or fluid collection. Right ovary measures 1.9 x 1.1 x 1.5 cm. cm. Left ovary was not visualized. Thin walled echogenic cystlike lesion is evident in the bladder likely representing a ureterocele. Maximum diameter is 13 mm. US/US pelvic and transvaginal IMPRESSION: Uterine fibroids. Suspected ureterocele Electronically signed by: Gene Benitez MD 05/07/2025 06:03 PM EDT
== END 2025-05-07 15:50 | disposition home or self-care (01) ==
LOC: HO.US 15:49
PROVIDERS: PCP Internal Medicine; Visit Provider Obstetrics & Gynecology
DX: D25.9 Leiomyoma of uterus, unspecified (principal)
CPT/HCPCS: 76830; 76856

== ENCOUNTER → 2025-05-07 15:51 | Outpatient (BNV) | payer BC, SELFPAY | PROVIDERS: PCP Internal Medicine; Visit Provider Radiology Diagnostic Radiology | DX: D25.0 Submucous leiomyoma of uterus (principal) | CPT/HCPCS: 76830; 76856 ==